=== PATIENT | male | born 1960 | race Two or more races ===

== ENCOUNTER 2024-07-27 20:13 | Inpatient (IN) | payer OTHER ==
[~2024-07-27] VITALS: Ht 175.3 cm; Wt 82.2 kg
--- NOTE | 2024-07-27 20:35 | ED.PDOC ---
HPI Comments 64-year-old came to ER via EMS for chest pains. Patient has history of hypertension, diabetes, dyslipidemia. States he has been having intermittent episodes of chest pains for the past 15 days. Chest pain is described to be pressure, substernal, nonradiating, intermittent, unprovoked. Upon arrival paramedics, noted hypertensive SBP >180's and EKG shows Afib. Patient has no history of Afib. Patient was given Nitroglycerin and 324 aspirin while en route to the ER. Chief Complaint: Chest Pains Time Seen by MD: 20:34 Reviewed Notes: Nurses Notes Allergies: Coded Allergies: NO KNOWN ALLERGIES (Unverified , 07/27/24) Information Source: Patient Mode of Arrival: EMS Severity: Moderate Timing: Days Duration: Intermittent Prehospital treatment: ASA, NTG, Oxygen Location: Substernal Radiation: No Radiation Quality: Pressure Onset: With Light Exertion Cardiac Risk Factors: Hyperlipidemia, HTN, Diabetes PE Risk Factors: None History of: Similar pain in past Associated Signs and Symptoms: None Past Medical History PAST MEDICAL HISTORY: DM, High Lipids, HTN Surgical History: Denies all surgeries Family History Family History: Reviewed,noncontributory to illness Social History Smoker: Non-Smoker Alcohol: Denies ETOH Use Drugs: Denies Drug Use Lives In: Home Constitutional: denies: chills, diaphoresis, fatigue, fever, malaise, sweats, weakness, others EENTM: denies: blurred vision, double vision, ear bleeding, ear discharge, ear drainage, ear pain, ear ringing, eye pain, eye redness, hearing loss, mouth pain, mouth swelling, nasal discharge, nose bleeding, nose congestion, nose pain, photophobia, tearing, throat pain, throat swelling, voice changes, others Respiratory: denies: cough, hemoptysis, orthopnea, SOB at rest, shortness of breath, SOB with excertion, stridor, wheezing, others Cardiovascular: reports: chest pain; denies: dizzy spells, diaphoresis, Dyspnea on exertion, edema, irregular heart beat, left arm pain, lightheadedness, palpitations, PND, syncope, others Gastrointestinal: denies: abdomen distended, abdominal pain, blood streaked bowels, constipated, diarrhea, dysphagia, difficulty swallowing, hematemesis, melena, nausea, poor appetite, poor fluid intake, rectal bleeding, rectal pain, vomiting, others Genitourinary: denies: burning, dysuria, flank pain, frequency, hematuria, incontinence, penile discharge, penile sore, pain, testicle pain, testicle swelling, urgency, others Neurological: denies: dizziness, fainting, headache, left sided numbness, left sided weakness, numbness, paresthesia, pre-existing deficit, right sided numbness, right sided weakness, seizure, speech problems, tingling, tremors, weakness, others Musculoskeletal: denies: back pain, gout, joint pain, joint swelling, muscle pain, muscle stiffness, neck pain, others Integumetry: denies: bruises, change in color, change in hair/nails, dryness, laceration, lesions, lumps, rash, wounds, others Allergic/Immunocompromised: denies: Difficulty Healing, Frequent Infections, Hives, Itching, others Hematologic/Lymphatic: denies: anemia, blood clots, easy bleeding, easy bruising, swollen glands, others Endocrine: denies: excessive hunger, excessive sweating, excessive thirst, excessive urination, flushing, intolerance to cold, intolerance to heat, unexplained weight gain, unexplained weight loss, others Psychiatric: denies: anxiety, bipolar disorder, depression, hopeless, panic disorder, schizophrenia, sleepless, suicidal, others Physical Exam General Appearance: No Apparent Distress, Normal HEENT: Normal ENT Inspection, Pharynx Normal, TMs Normal Neck: Full Range of Motion, Non-Tender, Normal, Normal Inspection Respiratory: Chest Non-Tender, Lungs Clear, No Accessory Muscle Use, No Respiratory Distress, Normal Breath Sounds Cardiovascular: No Edema, No JVD, No Murmur, No Gallop, Normal Peripheral Pulses, Regular Rate/Rhythm Breast Exam: Deferred Gastrointestinal: No Organomegaly, Non Tender, No Pulsatile Mass, Normal Bowel Sounds, Soft Genitalia: Deferred Pelvic: Deferred Rectal: Deferred Extremities: No calf tenderness, Normal capillary refill, Normal inspection, Normal range of motion, Non-tender, No pedal edema Musculoskeletal : Apperance: Normal Neurologic: Alert, jailer chief II-XII nml as Tested, No Motor Deficits, Normal Affect, Normal Mood, No Sensory Deficits Cerebellar Function: Normal Reflexes: Normal Skin: Dry, Normal Color, Warm Lymphatic: No Adenopathy Was a procedure done? Was a procedure done?: No CP Differential Dx Differential Diagnosis: Angina, Anxiety / Panic Attack Differential Diagnosis: Angina, Chest Wall Pain, Costochondritis, Esophageal reflux/spasm, Gastritis, Myocardial Infarction X-Ray, Labs, Meds, VS Vital Signs Date Time Temp Pulse Resp B/P (MAP) Pulse Ox O2 Delivery O2 Flow Rate FiO2 07/27/24 20:16 86 07/27/24 20:13 98.6 93 16 135/66 (89) 96 98.6 Lab Test 07/27/24 20:38 Range/Units White Blood Count 11.2 H 4.4-10.8 10^3/uL Red Blood Count 4.09 L 4.5-5.90 10^6/uL Hemoglobin 12.0 L 13.5-17.5 g/dL Hematocrit 35.9 L 41.0-53.0 % Mean Corpuscular Volume 87.9 80.0-100.0 fL Mean Corpuscular Hemoglobin 29.4 28.0-32.0 pg Mean Corpuscular Hemoglobin Concent 33.4 32.0-36.0 g/dL Red Cell Distribution Width 16.9 H 11.8-14.3 % Platelet Count 65 L 140-450 10^3/uL Mean Platelet Volume 9.0 6.9-10.8 fL Neutrophils (%) (Auto) 85.6 H 37.0-80.0 % Lymphocytes (%) (Auto) 7.5 L 10.0-50.0 % Monocytes (%) (Auto) 5.2 0.0-12.0 % Eosinophils (%) (Auto) 1.5 0.0-7.0 % Basophils (%) (Auto) 0.2 0.0-2.0 % Neutrophils # (Auto) 9.6 H 1.6-8.6 10 ^3/uL Lymphocytes # (Auto) 0.8 0.4-5.4 10 ^3/uL Monocytes # (Auto) 0.6 0-1.3 10 ^3/uL Eosinophils # (Auto) 0.2 0-0.8 10 ^3/uL Basophils # (Auto) 0 0-0.2 10 ^3/uL Nucleated Red Blood Cells 0.0 % Sodium Level 131 L 136-145 mmol/L Potassium Level 4.4 3.5-5.1 mmol/L Chloride Level 102 98-107 mmol/L Carbon Dioxide Level 19 L 20-31 mmol/L Anion Gap 10 5-15 Blood Urea Nitrogen 43 H 9-23 mg/dL Creatinine 2.71 H 0.700-1.30 mg/dL Glomerular Filtration Rate Calc 25 >90 mL/min BUN/Creatinine Ratio 15.9 10.0-20.0 Serum Glucose 155 H 74-106 mg/dL Calcium Level 9.1 8.7-10.4 mg/dL Troponin I High Sensitivity 500 *H </=54 ng/L B-Type Natriuretic Peptide 605.43 0-100 pg/mL Time of 1ST Reevaluation: 20:26 Reevaluation 1ST: Unchanged Patient Education/Counseling: Diagnosis, Treatment Family Education/Counseling: No Family Present Departure 1 Departure Time of Disposition: 22:16 (Patient presented with chest pain that was concerning for possible STEMI, ACS, PE, Pneumonia, Muscle Strain, COPD, Dissection. Data: 1. I ordered and reviewed the result of at least 3 labs including a CBC, BMP, and Troponin. 2. I independently interpreted the following tests: EKG which shows _ sinus arrhythmia and Chest X-ray which shows benign chest.Risk:This patient has a high risk of morbidity due to further diagnostic testing or treatment and may suffer from an acute cardiac or respiratory disorder. Workup reveals _ concern for ACS and patient should be admitted for further workup and possible expert consultation. ) Impression: Primary Impression: Acute chest pain Additional Impression: NSTEMI (non-ST elevated myocardial infarction) Disposition: 09 ADMITTED INPATIENT Admit to: Med Surg Condition: Serious Critical Care Note Critical Care Time?: Yes (45 min-critical care time only) Critical care comment: Acute chest pains Authorized and Performed by: Dennis Foster MD Total critical care time: Approximately 38 minutes Due to a high probability of clinically significant, life threatening deterioration, the patient required my highest level of preparedness to intervene emergently and I personally spent this critical care time directly and personally managing the patient. This critical care time included obtaining a history; examining the patient; pulse oximetry; ordering and review of studies; arranging urgent treatment with development of a management plan; evaluation of patient's response to treatment; frequent reassessment; and, discussions with other providers. This critical care time was performed to assess and manage the high probability of imminent, life-threatening deterioration that could result in multi-organ failure. It was exclusive of separately billable procedures and treating other patients and teaching time. Please see my other sections and the rest of the note for further information on patient assessment and treatment. Stability Stability form required: No Heart Score Heart Score: Heart Score Response (Comments) Value History Moderate Suspicious 1 EKG Repolarization Disturb 1 Age >65 2 Risk Factors >3 or Hx ASHD 2 Troponin Normal limit 0 Total 6 I personally scribed for DENNIS FOSTER MD ([email or web address]) on 07/27/24 at 20:35. Electronically submitted by Elliot Levine ([facility] [place]). DENNIS FOSTER MD Jul 27, 2024 20:35
[2024-07-27 20:57] LABS: Basophils # (auto) 0 10 ^3/uL (0-0.2); Basophils % (auto) 0.2 % (0.0-2.0); Eosinophils # (auto) 0.2 10 ^3/uL (0-0.8); Eosinophils % (auto) 1.5 % (0.0-7.0); Hematocrit 35.9 % (41.0-53.0); Lymphocytes # (auto) 0.8 10 ^3/uL (0.4-5.4); Lymphocytes % (auto) 7.5 % (10.0-50.0); Mean Corpuscular Hemoglobin 29.4 pg (28.0-32.0); Mean Corpuscular Hgb Conc. 33.4 g/dL (32.0-36.0); Mean Corpuscular Volume 87.9 fL (80.0-100.0); Monocytes # (auto) 0.6 10 ^3/uL (0-1.3); Monocytes % (auto) 5.2 % (0.0-12.0); Neutrophils # (auto) 9.6 10 ^3/uL (1.6-8.6); Neutrophils % (auto) 85.6 % (37.0-80.0); Platelet Count (auto) 65 10^3/uL (140-450); Red Blood Cells 4.09 10^6/uL (4.5-5.90); Red Cell Distribution Width 16.9 % (11.8-14.3); White Blood Cell 11.2 10^3/uL (4.4-10.8)
--- NOTE | 2024-07-27 21:02 | DVH ---
CHEST RADIOGRAPH Indication: chest pain Technique: Single frontal view of the chest was obtained Comparison: None FINDINGS: Lines and Tubes: None Lungs: Atelectasis or chronic changes right base Pleura: No effusion. No pneumothorax. Cardiomediastinal contours: Unremarkable Bones: No acute osseous abnormality. IMPRESSION: 1. Chronic changes versus atelectasis in the right base.
[2024-07-27 21:04] LABS: Anion Gap 10 (5-15); Chloride 102 mmol/L (98-107); Potassium 4.4 mmol/L (3.5-5.1)
[2024-07-27 21:05] LABS: Calcium 9.1 mg/dL (8.7-10.4)
[2024-07-27 21:10] LABS: BUN/Creatinine Ratio 15.9 (10.0-20.0)
[2024-07-27 21:11] LABS: Blood Urea Nitrogen 43 mg/dL (9-23); Carbon Dioxide 19 mmol/L (20-31); Glucose 155 mg/dL (74-106); Sodium 131 mmol/L (136-145)
[2024-07-27 23:00] VITALS: PULSE 75; RESP 17; O2SAT 97
[2024-07-27] MEDS ORDERED: HEPARIN SODIUM (PORCINE) 5000 UNITS/ML 1ML VIAL IV ONE (23:15)
[2024-07-27 23:32] LABS: INR 1.08 (0.9-1.15); Partial Thromboplastin Time 35.8 SEC (24.5-34.5); Prothrombin Time 11.4 sec (9.3-11.8)
[2024-07-27] MEDS: SODIUM CHLORIDE 0.9% 1,000 ML IV ONE (23:45)
[2024-07-28] VITALS (7 sets, daily range): BP systolic 102–134; BP diastolic 31–77; PULSE 64–88; RESP 16–20; TEMP 97.5–98.4; O2SAT 93–100
[2024-07-28] MEDS: ONDANSETRON HCL 4 MG/2 ML VIAL IV PRN (00:09)
[2024-07-28] MEDS: MORPHINE SULFATE INJ 2 MG/ml SYRG IV PRN (00:10)
[2024-07-28 00:11] LABS: LDL Cholesterol 52 mg/dL (< 100)
[2024-07-28 00:12] LABS: Cholesterol 100 mg/dL (< 200)
[2024-07-28 00:26] LABS: HDL Cholesterol 9 mg/dL (40-59); Triglycerides 183 mg/dL (< 150)
[2024-07-28] MEDS: HEPARIN DRIP/D5W 100UNITS/ML 250 ML IV SCH ×3 (01:37→19:45)
--- NOTE | 2024-07-28 04:49 | DVHHP2 ---
History of Present Illness Reason for Visit: Chest pain History of Present Illness 64-year-old male presents for evaluation of chest pain. Patient reports a two week history of intermittent chest pain. He states that yesterday the pain became more intense and would not subside. He describes the pain as substernal pressure nonradiating. Denies shortness or breath, nausea or vomiting. Currently rates the pain at 6/10 intensity. Past Medical History Dyslipidemia, hypertension, diabetes mellitus Past Surgical History PTCA Family History Noncontributory Smoke: No ALCOHOL: none Drugs: None Lives: with Family Review of Systems Review of Systems Review of systems are currently negative otherwise addressed in HPI. Allergies: Coded Allergies: NO KNOWN ALLERGIES (Unverified , 07/27/24) Medications Current Medications Medications Dose Ordered Sig/Joe Route Start Time Stop Time Status Last Admin Dose Admin Heparin Sodium/ Dextrose 250 ml @ 9 mls/hr Q24H IV 07/28/24 02:00 07/28/24 01:37 9 MLS/HR Ondansetron HCl 4 mg Q4HP PRN IV 07/27/24 23:15 07/28/24 00:09 4 MG Nitroglycerin 0.4 mg Q5MINP PRN SL 07/27/24 23:15 Morphine Sulfate 2 mg Q30M PRN IV 07/27/24 23:15 07/28/24 04:08 2 MG Exam Vital Signs Vital Signs Date Time Temp Pulse Resp B/P (MAP) Pulse Ox O2 Delivery O2 Flow Rate FiO2 07/28/24 04:08 90 18 130/42 07/28/24 01:00 98 07/27/24 23:30 99.0 99.0 07/27/24 23:00 Room Air* 0 21 Exam Gen: 64-year-old male in mild distress Skin: Warm, dry, normal color and texture, no rash. HEENT: Normocephalic atraumatic, mucous membranes moist and pink. Neck: Cervical and supraclavicular nodes normal without enlargement, trachea is midline, thyroid gland is normal without masses. Pulmonary: Clear to auscultation and percussion bilaterally. Cardiac: Regular rate and rhythm. No murmur Abdomen: Soft, nontender, nondistended, bowel sounds present all 4 quadrants, no guarding, no rigidity, no organomegaly. Extremities: No cyanosis, clubbing, no edema Neuro: Cranial nerves II through XII grossly intact, normal affect and speech, no focal motor deficits. Labs/Xrays ORDERING PHYSICIAN: DENNIS PAYNE MD PROCEDURE(s): CXRP - CHEST PORTABLE REASON: chest pain ORDER NUMBER(s): [id number], ACCESSION NUMBER(s): [id number] CHEST RADIOGRAPH Indication: chest pain Technique: Single frontal view of the chest was obtained Comparison: None FINDINGS: Lines and Tubes: None Lungs: Atelectasis or chronic changes right base Pleura: No effusion. No pneumothorax. Cardiomediastinal contours: Unremarkable Bones: No acute osseous abnormality. IMPRESSION: 1. Chronic changes versus atelectasis in the right base. Labs Test 07/27/24 23:10 07/27/24 20:38 Range/Units Troponin I High Sensitivity 910 *H </=54 ng/L Triglycerides Level 183 H < 150 mg/dL Cholesterol Level 100 < 200 mg/dL LDL Cholesterol 52 < 100 mg/dL HDL Cholesterol 9 L 40-59 mg/dL Thyroid Stimulating Hormone (TSH) 1.50 0.55-4.78 uIU/mL White Blood Count 11.2 H 4.4-10.8 10^3/uL Red Blood Count 4.09 L 4.5-5.90 10^6/uL Hemoglobin 12.0 L 13.5-17.5 g/dL Hematocrit 35.9 L 41.0-53.0 % Mean Corpuscular Volume 87.9 80.0-100.0 fL Mean Corpuscular Hemoglobin 29.4 28.0-32.0 pg Mean Corpuscular Hemoglobin Concent 33.4 32.0-36.0 g/dL Red Cell Distribution Width 16.9 H 11.8-14.3 % Platelet Count 65 L 140-450 10^3/uL Mean Platelet Volume 9.0 6.9-10.8 fL Neutrophils (%) (Auto) 85.6 H 37.0-80.0 % Lymphocytes (%) (Auto) 7.5 L 10.0-50.0 % Monocytes (%) (Auto) 5.2 0.0-12.0 % Eosinophils (%) (Auto) 1.5 0.0-7.0 % Basophils (%) (Auto) 0.2 0.0-2.0 % Neutrophils # (Auto) 9.6 H 1.6-8.6 10 ^3/uL Lymphocytes # (Auto) 0.8 0.4-5.4 10 ^3/uL Monocytes # (Auto) 0.6 0-1.3 10 ^3/uL Eosinophils # (Auto) 0.2 0-0.8 10 ^3/uL Basophils # (Auto) 0 0-0.2 10 ^3/uL Nucleated Red Blood Cells 0.0 % Prothrombin Time 11.4 9.3-11.8 sec Prothrombin Time INR 1.08 0.9-1.15 Activated Partial Thromboplast Time 35.8 H 24.5-34.5 SEC Sodium Level 131 L 136-145 mmol/L Potassium Level 4.4 3.5-5.1 mmol/L Chloride Level 102 98-107 mmol/L Carbon Dioxide Level 19 L 20-31 mmol/L Anion Gap 10 5-15 Blood Urea Nitrogen 43 H 9-23 mg/dL Creatinine 2.71 H 0.700-1.30 mg/dL Glomerular Filtration Rate Calc 25 >90 mL/min BUN/Creatinine Ratio 15.9 10.0-20.0 Serum Glucose 155 H 74-106 mg/dL Calcium Level 9.1 8.7-10.4 mg/dL B-Type Natriuretic Peptide 605.43 0-100 pg/mL Assessment/Plan Assessment/Plan Assessment NSTEMI Diabetes mellitus Hypertension Plan Admit the patient to telemetry to the hospitalist Heparin drip NPO Cardiology consultation Continue treatment per orders. Plan discussed with: Patient My Orders Orders - TOM ACUNA Procedure Category Date Status Time * Cardiology Consult CONS 07/27/24 Transmitted 23:07 Platelet Monitoring [facility] 07/27/24 In Process 23:07 Heparin Per [facility] 07/27/24 In Process Standardized Proce 23:07 Discontinue All Im [facility] 07/27/24 In Process Injections 23:07 Stat Ekg For Chest [facility] 07/27/24 In Process Pain 23:07 *[facility] CONS 07/27/24 Transmitted -[place] 23:07 Sodium Chloride 0.9% PHA 07/27/24 In Process 23:15 Admit ADMIT 07/27/24 Transmitted 23:07 Ondansetron Hcl PHA 07/27/24 In Process (Zofran) 23:15 Complete Blood Count LAB 07/28/24 Logged 04:00 Comprehensive LAB 07/28/24 Logged Metabolic Panel 04:00 Npo (Nothing By DIET 07/28/24 Transmitted Mouth) Diet Breakfast Echo 2d Mode Cardiac US 07/27/24 Logged DOP 23:07 Condition: Fair [facility] 07/27/24 In Process 23:07 Bedrest With Bathroom [facility] 07/27/24 In Process Privileg 23:07 Nitroglycerin PHA 07/27/24 In Process Sublingual (Ntrostat 23:15 Morphine Sulfate PHA 07/27/24 In Process Injection 23:15 Stat Ekg For Chest [facility] 07/27/24 In Process Pain 23:07 Notify Md Of Changes [facility] 07/27/24 In Process From Base 23:07 Wad Blanking Press Adjuster For [facility] 07/27/24 In Process 24 Hours 23:07 Emergency Dysrhythmia [facility] 07/27/24 In Process Protocol 23:07 Rhythm Strips Once [facility] 07/27/24 In Process Every Shift 23:07 Oxygen By Nasal RT 07/27/24 Transmitted Cannula 23:07 Heparin Drip/D5w PHA 07/28/24 In Process 100units/Ml 02:00 PTPTT LAB 07/28/24 Logged 07:00 Heparin Per Pharmacy [facility] 07/28/24 In Process Protocol 01:21 Electrocardigram EKG 07/28/24 Logged 03:51 Date of Service: Jul 27, 2024 Billing Provider: TOM ACUNA Common Visit Codes: [id number] INP/OBS CARE (HIGH) TOM ACUNA Jul 28, 2024 04:49
[2024-07-28 05:04] LABS: Basophils # (auto) 0 10 ^3/uL (0-0.2); Basophils % (auto) 0.1 % (0.0-2.0); Eosinophils # (auto) 0 10 ^3/uL (0-0.8); Eosinophils % (auto) 0.5 % (0.0-7.0); Hematocrit 32.1 % (41.0-53.0); Hemoglobin 10.9 g/dL (13.5-17.5); Lymphocytes # (auto) 0.7 10 ^3/uL (0.4-5.4); Lymphocytes % (auto) 7.2 % (10.0-50.0); Mean Corpuscular Hemoglobin 29.8 pg (28.0-32.0); Mean Corpuscular Hgb Conc. 33.9 g/dL (32.0-36.0); Mean Corpuscular Volume 87.7 fL (80.0-100.0); Monocytes # (auto) 0.6 10 ^3/uL (0-1.3); Monocytes % (auto) 6.6 % (0.0-12.0); Neutrophils # (auto) 8.2 10 ^3/uL (1.6-8.6); Neutrophils % (auto) 85.6 % (37.0-80.0); Nucleated Red Blood Cells % 0.1 %; Platelet Count (auto) 65 10^3/uL (140-450); Red Blood Cells 3.66 10^6/uL (4.5-5.90); Red Cell Distribution Width 16.5 % (11.8-14.3); White Blood Cell 9.5 10^3/uL (4.4-10.8)
[2024-07-28 05:20] LABS: INR 1.12 (0.9-1.15); Prothrombin Time 11.7 sec (9.3-11.8)
[2024-07-28 05:31] LABS: Alanine Aminotransferase 10 U/L (7-40); Alkaline Phosphatase 81 U/L (46-116); BUN/Creatinine Ratio 15.9 (10.0-20.0); Calcium 8.9 mg/dL (8.7-10.4); Total Protein 6.6 g/dL (5.7-8.2)
[2024-07-28 05:32] LABS: Aspartate Aminotransferase 36 U/L (13-40); Bilirubin, Total 0.6 mg/dL (0.2-1.0)
[2024-07-28 05:34] LABS: Albumin 3.1 g/dL (3.2-4.8); Blood Urea Nitrogen 45 mg/dL (9-23); Carbon Dioxide 19 mmol/L (20-31); Glucose 110 mg/dL (74-106)
[2024-07-28 05:39] LABS: Anion Gap 12 (5-15); Chloride 102 mmol/L (98-107); Potassium 4.3 mmol/L (3.5-5.1)
[2024-07-28 05:40] LABS: Sodium 133 mmol/L (136-145)
--- NOTE | 2024-07-28 06:54 | ECG ---
[facility] Test Date: 2024-07-27 Test Time: 21:35:31 Pat Name: JOSEPH CERDA Department: ER Room: 0235T Gender: M Fugitive Investigator: MARILOU : 1960 Requested By: DENNIS PAYNE Order Number: [id number] Reading MD: Jeremie Camarena Measurements Intervals [place] Rate: 85 P: 253 AK: 203 QRS: 190 QRSD: 175 T: 35 QT: 426 QTc: 507 Interpretive Statements Sinus or ectopic atrial rhythm Atrial premature complex Nonspecific intraventricular conduction delay Minimal ST depression, anterolateral leads Electronically Signed On 08-01-2024 12:42:48 PDT by Jeremie Camarena Please click the below link to view image of tracing.
--- NOTE | 2024-07-28 06:54 | ECG ---
[facility] Test Date: 2024-07-27 Test Time: 22:44:52 Pat Name: JOSEPH CERDA Department: TRIAGE Room: 0235T Gender: M Sealer Operator: MARILOU : 1960 Requested By: DENNIS PAYNE Order Number: [id number] Reading MD: Jeremie Camarena Measurements Intervals [place] Rate: 80 P: 0 DE: 193 QRS: 172 QRSD: 183 T: 43 QT: 451 QTc: 521 Interpretive Statements Sinus rhythm Right bundle branch block Electronically Signed On 08-01-2024 12:43:06 PDT by Jeremie Camarena Please click the below link to view image of tracing.
[2024-07-28 09:09] LABS: Urine Bacteria FEW /hpf (None Seen); Urine Blood Negative /uL (Negative); Urine Color Yellow (Yellow); Urine Protein, UAD 1+ (Negative); Urine Specific Gravity 1.013 (1.001-1.035); Urine Squamous Epithelial Cell FEW /hpf (<5); Urine Urobilinogen Normal (Negative); Urine WBC 7 /HPF (0-3); Urine pH 5.5 (5.0-9.0)
[2024-07-28 09:10] LABS: Urine Clarity Hazy (Clear)
--- NOTE | 2024-07-28 09:43 | ECG ---
[facility] Test Date: 2024-07-28 Test Time: 03:43:05 Pat Name: JOSEPH CERDA Department: Room: 0235T Gender: M Forensic Artist: rn : 1960 Requested By: TOM ACUNA Order Number: [id number] Reading MD: Jeremie Camarena Measurements Intervals [place] Rate: 88 P: 0 WV: 0 QRS: 132 QRSD: 193 T: 41 QT: 480 QTc: 581 Interpretive Statements Accelerated junctional rhythm RBBB and LPFB Borderline ST depression, lateral leads Baseline wander in lead(s) I,V1,V6 Electronically Signed On 08-01-2024 12:13:31 PDT by Jeremie Camarena Please click the below link to view image of tracing.
--- NOTE | 2024-07-28 09:43 | ECG ---
[facility] Test Date: 2024-07-28 Test Time: 03:44:20 Pat Name: JOSEPH CERDA Department: Room: 0235T Gender: M Target Trimmer: rn : 1960 Requested By: FREDY LARA Order Number: [id number] Reading MD: Jeremie Camarena Measurements Intervals [place] Rate: 86 P: 0 NE: 326 QRS: 104 QRSD: 187 T: 39 QT: 451 QTc: 540 Interpretive Statements Sinus rhythm Atrial premature complex Prolonged NE interval REYNA, consider biatrial enlargement RBBB and LPFB Borderline ST depression, lateral leads Electronically Signed On 08-01-2024 12:13:46 PDT by Jeremie Camarena Please click the below link to view image of tracing.
--- NOTE | 2024-07-28 11:08 | DVHINCON2 ---
Date Seen: Jul 28, 2024 Referring Physician Arias CASEY Reason for Consultation Elevated troponins History of Present Illness This 64-year-old male presents in ED via EMS with a chief complaint of chest pain. The patient reports chest pressure pain nonradiating, non provoked for the past 15 days. In the emergency department, the patient underwent a 12 lead ECG showing normal sinus rhythm with prolonged [place] interval and right BBB, serial troponin up trending with a recent results in . The patient is currently receiving heparin drip and aspirin. Currently denies chest pain, diaphoresis, shortness of breath or difficulty in breathing. The patient reports that he had recent angiogram in April 2024 with clean coronaries. The patient states that he is under a Cardiology from [place] and supposed to have a follow-up office visit this coming August 06, 2024. The patient is alert and oriented but somehow poor historian, the son was contacted to verify cardiac history who states that the patient was supposed to take blood thinners but for some reason had stopped. Significant past medical history of hypertension, hyperlipidemia, diabetes, and possible noncompliance. Off note: Upon reviewing medical record, ER noted that the patient EKG shows AFib, unable to locate 12 lead ECG with atrial fibrillation. Telemetry reviewed with no episodes of atrial fibrillation. Past Medical History As stated in HPI Past Surgical History ?Left coronary angiogram Family History Reviewed, non-contributory to the management of this case. Social History The patient lives at home, denies smoking, alcohol or illicit drugs abuse. Allergies: Coded Allergies: NO KNOWN ALLERGIES (Unverified , 07/27/24) Current Medications Current Medications Medications (Trade) Dose Ordered Sig/Joe Route PRN Reason Start Time Stop Time Status Last Admin Heparin Sodium/ Dextrose 250 ml @ 9 mls/hr Q24H IV 07/28/24 02:00 07/28/24 01:37 Ondansetron HCl (Zofran) 4 mg Q4HP PRN IV NAUSEA / VOMITING 07/27/24 23:15 07/28/24 00:09 Nitroglycerin (Ntrostat Sublingual) 0.4 mg Q5MINP PRN SL FOR CHEST PAIN 07/27/24 23:15 Morphine Sulfate 2 mg Q30M PRN IV FOR CHEST PAIN 07/27/24 23:15 07/28/24 04:08 Review of Systems Constitutional: No symptom reported Ears, Nose, & Throat: No symptom reported Eyes: No symptom reported Neurological: No symptoms reported Pulmonary/Respiratory: No symptom reported Cardiovascular: Chest pain Gastrointestinal: No symptom reported Genitourinary: No symptom reported Musculoskeletal: No symptom reported Skin: No symptom reported Psychiatric: No symptom reported Endocrine: No symptom reported Hematologic/Lymphatic: No symptom reported Vital Signs Vital Signs Date Time Temp Pulse Resp B/P (MAP) Pulse Ox O2 Delivery O2 Flow Rate FiO2 07/28/24 08:00 97.9 69 18 102/31 (54) 98 97.9 07/28/24 02:42 Room Air* 0 21 Physical Exam INITIAL VITAL SIGNS: Reviewed by me GENERAL: Alert and interactive. No acute distress. HEAD: Head is normocephalic and atraumatic. EYES: EOMI, PERRL. No scleral icterus. No conjunctival injection. ENT: Moist mucous membranes. NECK: Supple, No masses, Full range of motion. RESPIRATORY: No tachypnea. Clear breath sounds bilaterally. No wheezing, rales, rhonchi. CV: Regular rate and rhythm. No shortness of breath, no dyspnea GI/: Active bowel sounds, soft, nondistended, nontender. No guarding. No rebound. No masses. No CVA tenderness. INTEGUMENTARY: Warm and dry. No obvious rashes. NEUROLOGIC: Alert and oriented. Face is symmetric. Speech is normal. Moves all extremities equally. Labs/Diagnostic Data Labs Test 07/28/24 08:45 07/28/24 04:22 07/28/24 04:21 07/27/24 23:10 Range/Units Urine Color Yellow Yellow Urine Clarity Hazy H Clear Urine pH 5.5 5.0-9.0 Urine Specific [place] 1.013 1.001-1.035 Urine Protein 1+ H Negative Urine Ketones Negative Negative Urine Blood Negative Negative /uL Urine Nitrite Negative Negative Urine Bilirubin Negative Negative Urine Urobilinogen Normal Negative mg/dL Urine Leukocyte Esterase Negative Negative /uL Urine RBC 3 0 - 3 /hpf Urine Microscopic WBC 7 H 0-3 /HPF Urine Squamous Epithelial Cells Few <5 /hpf Urine Bacteria Few H None Seen /hpf Urine Glucose Normal Normal mg/dL B-Type Natriuretic Peptide 1217.74 0-100 pg/mL White Blood Count 9.5 4.4-10.8 10^3/uL Red Blood Count 3.66 L 4.5-5.90 10^6/uL Hemoglobin 10.9 L 13.5-17.5 g/dL Hematocrit 32.1 #L 41.0-53.0 % Mean Corpuscular Volume 87.7 80.0-100.0 fL Mean Corpuscular Hemoglobin 29.8 28.0-32.0 pg Mean Corpuscular Hemoglobin Concent 33.9 32.0-36.0 g/dL Red Cell Distribution Width 16.5 H 11.8-14.3 % Platelet Count 65 L 140-450 10^3/uL Mean Platelet Volume 8.9 6.9-10.8 fL Neutrophils (%) (Auto) 85.6 H 37.0-80.0 % Lymphocytes (%) (Auto) 7.2 L 10.0-50.0 % Monocytes (%) (Auto) 6.6 0.0-12.0 % Eosinophils (%) (Auto) 0.5 0.0-7.0 % Basophils (%) (Auto) 0.1 0.0-2.0 % Neutrophils # (Auto) 8.2 1.6-8.6 10 ^3/uL Lymphocytes # (Auto) 0.7 0.4-5.4 10 ^3/uL Monocytes # (Auto) 0.6 0-1.3 10 ^3/uL Eosinophils # (Auto) 0 0-0.8 10 ^3/uL Basophils # (Auto) 0 0-0.2 10 ^3/uL Nucleated Red Blood Cells 0.1 % Prothrombin Time 11.7 9.3-11.8 sec Prothrombin Time INR 1.12 0.9-1.15 Activated Partial Thromboplast Time 53.0 H 24.5-34.5 SEC Sodium Level 133 L 136-145 mmol/L Potassium Level 4.3 3.5-5.1 mmol/L Chloride Level 102 98-107 mmol/L Carbon Dioxide Level 19 L 20-31 mmol/L Anion Gap 12 5-15 Blood Urea Nitrogen 45 H 9-23 mg/dL Creatinine 2.83 H 0.700-1.30 mg/dL Glomerular Filtration Rate Calc 24 >90 mL/min BUN/Creatinine Ratio 15.9 10.0-20.0 Serum Glucose 110 H 74-106 mg/dL Calcium Level 8.9 8.7-10.4 mg/dL Magnesium Level 2.3 1.6-2.6 mg/dL Total Bilirubin 0.6 0.2-1.0 mg/dL Aspartate Amino Transferase (AST) 36 13-40 U/L Alanine Aminotransferase (ALT) 10 7-40 U/L Alkaline Phosphatase 81 46-116 U/L Troponin I High Sensitivity 2041 *H </=54 ng/L Total Protein 6.6 5.7-8.2 g/dL Albumin 3.1 L 3.2-4.8 g/dL Triglycerides Level 183 H < 150 mg/dL Cholesterol Level 100 < 200 mg/dL LDL Cholesterol 52 < 100 mg/dL HDL Cholesterol 9 L 40-59 mg/dL Thyroid Stimulating Hormone (TSH) 1.50 0.55-4.78 uIU/mL PROCEDURE(s): CXRP - CHEST PORTABLE REASON: chest pain ORDER NUMBER(s): [id number], ACCESSION NUMBER(s): [id number] CHEST RADIOGRAPH Indication: chest pain Technique: Single frontal view of the chest was obtained Comparison: None FINDINGS: Lines and Tubes: None Lungs: Atelectasis or chronic changes right base Pleura: No effusion. No pneumothorax. Cardiomediastinal contours: Unremarkable Bones: No acute osseous abnormality. IMPRESSION: 1. Chronic changes versus atelectasis in the right base. Assessment NSTEMI Rule out ACS Rule out structural heart disease RACHEL on possible CKD 4 Hypertension Dyslipidemia Diabetes type 2 Plan/Recommendation Plan/recommendations (Dr. Wong ): * Echocardiogram to evaluate cardiac function * ACS protocol - heparin drip, asa, statins * Lasix, monitor kidney function closely, monitor intake and output, daily weight Continue with heparin drip and asa, we will continue to monitor troponin and EKG, we will re-evaluate for possible ischemic workup once kidney function has improved. This medical document was created using an electronic medical record system with voice recognition software and computerized dictation system. Although this document has been carefully reviewed, there might still be some phonetic and typographical errors. Occasional wrong-word or ``sound-alike substitutions may have occurred due to the inherent limitations of voice recognition software. These areas are purely typographical due to imperfections of the software programs and do not reflect any compromise in the patient's medical care. Please read the chart carefully and recognize, using context, where these substitutions have occurred. Plan discussed with: Patient Plan discussed with: Patient, Son NYHA Physical activity limitations: Class2(Slight)fatigue,sob Date of Service: Jul 28, 2024 Billing Provider: PETRONA WONG MD Cardiology Common Codes: CONSULT ONLY Cardiology Consultation Codes: 92722-[id number] CONSULT <60MIN FREDY LARA [employer] Jul 28, 2024 11:08
[2024-07-28 11:52] LABS: Protein, Urine 71.7 mg/dL (1-14)
[2024-07-28 11:52] LABS: INR 1.14 (0.9-1.15); Prothrombin Time 11.9 sec (9.3-11.8)
[2024-07-28 11:55] LABS: Partial Thromboplastin Time 87.7 SEC (24.5-34.5)
[2024-07-28 11:55] LABS: Creatinine, Urine 112.81 mg/dL (30.0-125.0)
[2024-07-28] MEDS: ASPirin 81 mg TAB PO ONE ×2 (12:11→18:00)
[2024-07-28] MEDS: FUROSEMIDE 20 MG/2 ML VIAL IV ONE (12:12)
--- NOTE | 2024-07-28 12:27 | CONS ---
Pharmacy Clinical Information: HEPARIN PER RX APTT RESULT 07/28@1100 = 87.7 ON RATE 9ML/HR NEW RATE 7ML/HR NEXT APTT @1800 COMMUNICATED WITH PRECIOUS BANSAL PHARMACIST Jul 28, 2024 12:27
--- NOTE | 2024-07-28 13:34 | DVH ---
US KIDNEY HISTORY: danelle COMPARISON: None TECHNIQUE: Transverse and longitudinal grayscale and color Doppler images were obtained of the kidney s and bladder. FINDINGS: Right kidney: Size: 9.9 cm Cortical thickness: Normal Echogenicity: Normal Stones: None Masses: None Hydronephrosis: None Ureters: Not well visualized. Other: None Left kidney: Size: 9.1 cm Cortical thickness: Normal Echogenicity: Normal Stones: None Masses: None Hydronephrosis: None Ureters: Not well visualized. Other: None Bladder: Normal Other: None. IMPRESSION: Normal renal ultrasound.
--- NOTE | 2024-07-28 14:16 | DVHINCON2 ---
Date of service: Jul 28, 2024 Referring Physician Arias Reason for Consultation RF, RACHEL History of Present Illness 64 y/o male with past medical hx of HTN, type 2 DM, and hyperlipidemia. Pt reports he had been experiencing CP x 2 weeks. Pt was admitted for NSTEMI, RACHEL. On admission pt had BUN of 43, creat 2.71, GFR 25. Repeat labs on 07/28 BUN 45, creat 2.83, GFR 24. Nephrology consult for RACHEL. Pt denies hx of CKD. Pt reports he follows up with his PCP. Reports blood pressures have been well controlled, DM well controlled. Reports daily ibuprofen use 200mg. Past Medical History HTN, type 2 DM, hyperlipidemia. Allergies: Coded Allergies: NO KNOWN ALLERGIES (Unverified , 07/27/24) Current Medications Current Medications Medications (Trade) Dose Ordered Sig/Joe Route PRN Reason Start Time Stop Time Status Last Admin Heparin Sodium/ Dextrose 250 ml @ 9 mls/hr Q24H IV 07/28/24 02:00 07/28/24 12:20 DC 07/28/24 01:37 Aspirin 81 mg DAILY PO 07/29/24 10:00 Atorvastatin Calcium (Lipitor) 40 mg HS PO 07/28/24 22:00 07/28/24 21:13 Furosemide (Lasix Injection) 20 mg DAILY IV 07/29/24 10:00 Metoprolol Succinate (Toprol Xl) 50 mg DAILY PO 07/29/24 10:00 Clopidogrel Bisulfate (Plavix) 75 mg DAILY PO 07/29/24 10:00 Heparin Sodium/ Dextrose 250 ml @ 7 mls/hr Q24H IV 07/28/24 12:30 07/28/24 19:45 DC 07/28/24 12:56 Heparin Sodium/ Dextrose 250 ml @ 9 mls/hr Q24H IV 07/28/24 19:45 07/28/24 19:45 Review of Systems 10 systems reviewed and negative except as per HPI H&P Exam Vital Signs/I&O Vital Sign Date Time Temp Pulse Resp B/P (MAP) Pulse Ox O2 Delivery O2 Flow Rate FiO2 07/28/24 21:08 134/40 07/28/24 21:00 98.0 69 17 96 98.0 07/28/24 20:00 Room Air* 0 21 Intake and Output 07/27/24 07/28/24 19:00 07:00 Intake Total 172 ml Output Total 0 ml Balance 172 ml Intake Oral 0 ml IV Total 172 ml Output Urine Total 0 ml Physical Exam Gen: Appears stated age, no acute distress HEENT:Pupils equal and reactive to light and accommodation Lungs: Bilateral air entry, no rales CVS: RRR, normal S1 and S2 Abd:normoactive bowel sounds, soft, nondistended Ext: No edema Neuro: A&O x4 Labs/Diagnostic Data Labs/Diagnostic Data Laboratory Tests Test 07/28/24 18:51 07/28/24 11:05 07/28/24 08:45 07/28/24 04:22 Range/Units Prothrombin Time 11.4 11.9 H 9.3-11.8 sec Prothrombin Time INR 1.08 1.14 0.9-1.15 Activated Partial Thromboplast Time 42.0 H 87.7 *H 24.5-34.5 SEC Urine Color Yellow Yellow Urine Clarity Hazy H Clear Urine pH 5.5 5.0-9.0 Urine Specific [place] 1.013 1.001-1.035 Urine Protein 1+ H Negative Urine Ketones Negative Negative Urine Blood Negative Negative /uL Urine Nitrite Negative Negative Urine Bilirubin Negative Negative Urine Urobilinogen Normal Negative mg/dL Urine Leukocyte Esterase Negative Negative /uL Urine RBC 3 0 - 3 /hpf Urine Microscopic WBC 7 H 0-3 /HPF Urine Squamous Epithelial Cells Few <5 /hpf Urine Bacteria Few H None Seen /hpf Urine Creatinine 112.81 30.0-125.0 mg/dL Urine Sodium 23 L 40-220 mmol/L Urine Glucose Normal Normal mg/dL Urine Total Protein 71.7 H 1-14 mg/dL B-Type Natriuretic Peptide 1217.74 0-100 pg/mL Test 07/28/24 04:21 07/27/24 23:10 07/27/24 22:26 07/27/24 20:38 Range/Units White Blood Count 9.5 11.2 H 4.4-10.8 10^3/uL Red Blood Count 3.66 L 4.09 L 4.5-5.90 10^6/uL Hemoglobin 10.9 L 12.0 L 13.5-17.5 g/dL Hematocrit 32.1 #L 35.9 L 41.0-53.0 % Mean Corpuscular Volume 87.7 87.9 80.0-100.0 fL Mean Corpuscular Hemoglobin 29.8 29.4 28.0-32.0 pg Mean Corpuscular Hemoglobin Concent 33.9 33.4 32.0-36.0 g/dL Red Cell Distribution Width 16.5 H 16.9 H 11.8-14.3 % Platelet Count 65 L 65 L 140-450 10^3/uL Mean Platelet Volume 8.9 9.0 6.9-10.8 fL Neutrophils (%) (Auto) 85.6 H 85.6 H 37.0-80.0 % Lymphocytes (%) (Auto) 7.2 L 7.5 L 10.0-50.0 % Monocytes (%) (Auto) 6.6 5.2 0.0-12.0 % Eosinophils (%) (Auto) 0.5 1.5 0.0-7.0 % Basophils (%) (Auto) 0.1 0.2 0.0-2.0 % Neutrophils # (Auto) 8.2 9.6 H 1.6-8.6 10 ^3/uL Lymphocytes # (Auto) 0.7 0.8 0.4-5.4 10 ^3/uL Monocytes # (Auto) 0.6 0.6 0-1.3 10 ^3/uL Eosinophils # (Auto) 0 0.2 0-0.8 10 ^3/uL Basophils # (Auto) 0 0 0-0.2 10 ^3/uL Nucleated Red Blood Cells 0.1 0.0 % Prothrombin Time 11.7 11.4 9.3-11.8 sec Prothrombin Time INR 1.12 1.08 0.9-1.15 Activated Partial Thromboplast Time 53.0 H 35.8 H 24.5-34.5 SEC Sodium Level 133 L 131 L 136-145 mmol/L Potassium Level 4.3 4.4 3.5-5.1 mmol/L Chloride Level 102 102 98-107 mmol/L Carbon Dioxide Level 19 L 19 L 20-31 mmol/L Anion Gap 12 10 5-15 Blood Urea Nitrogen 45 H 43 H 9-23 mg/dL Creatinine 2.83 H 2.71 H 0.700-1.30 mg/dL Glomerular Filtration Rate Calc 24 25 >90 mL/min BUN/Creatinine Ratio 15.9 15.9 10.0-20.0 Serum Glucose 110 H 155 H 74-106 mg/dL Calcium Level 8.9 9.1 8.7-10.4 mg/dL Magnesium Level 2.3 1.6-2.6 mg/dL Total Bilirubin 0.6 0.2-1.0 mg/dL Aspartate Amino Transferase (AST) 36 13-40 U/L Alanine Aminotransferase (ALT) 10 7-40 U/L Alkaline Phosphatase 81 46-116 U/L Troponin I High Sensitivity 2041 *H 910 *H 689 *H 500 *H </=54 ng/L Total Protein 6.6 5.7-8.2 g/dL Albumin 3.1 L 3.2-4.8 g/dL Triglycerides Level 183 H < 150 mg/dL Cholesterol Level 100 < 200 mg/dL LDL Cholesterol 52 < 100 mg/dL HDL Cholesterol 9 L 40-59 mg/dL Thyroid Stimulating Hormone (TSH) 1.50 0.55-4.78 uIU/mL B-Type Natriuretic Peptide 605.43 0-100 pg/mL Plan/Recommendation IMP RACHEL hemodynamically mediated baseline serum creat unknown, unknown hx of CKD Mild hyponatremia NSTEMI Hx of HTN HX of type 2 DM REC CMP, CBC, phos, TSH, uric acid, urine studies Renal U/S Strict I&O's Avoidance of nephrotoxins We will continue to follow Plan discussed with: Patient, Other (Dr. Coronel) MARTIN BUNCH Jul 28, 2024 14:16
[2024-07-28] MEDS: NITROGLYCERIN 0.4 MG SL TAB SL PRN (18:02)
--- NOTE | 2024-07-28 18:31 | DVHINCON2 ---
Date Seen: Jul 28, 2024 Referring Physician Arias CASEY Reason for Consultation Elevated troponins History of Present Illness This 64-year-old male with a past medical history of hypertension, hyperlipidemia, diabetes, and possible noncompliance who presents to ED via EMS with a complaint of chest pain. The patient reports chest pressure pain nonradiating, non provoked for the past 15 days. In the emergency department, the patient underwent a 12 lead ECG showing normal sinus rhythm with prolonged [place] interval and right BBB, serial troponin up trending with a recent results in . The patient is currently receiving heparin drip and aspirin. Currently denies chest pain, diaphoresis, shortness of breath or difficulty in breathing. The patient reports that he had recent angiogram in April 2024 with clean coronaries. Patient states that he is under a Cardiology from [place] and supposed to have a follow-up office visit scheduled for August 06, 2024. The patient is alert and oriented but somehow poor historian, the son was contacted to verify cardiac history who states that the patient was supposed to take blood thinners but for some reason had stopped. Off note: Upon reviewing medical record, ER noted that the patient EKG shows AFib, unable to locate 12 lead ECG with atrial fibrillation. Telemetry reviewed with no episodes of atrial fibrillation. Chest x-ray showed chronic changes versus atelectasis in the right base. Allergies: Coded Allergies: NO KNOWN ALLERGIES (Unverified , 07/27/24) Current Medications Current Medications Medications (Trade) Dose Ordered Sig/Joe Route PRN Reason Start Time Stop Time Status Last Admin Heparin Sodium/ Dextrose 250 ml @ 9 mls/hr Q24H IV 07/28/24 02:00 07/28/24 12:20 DC 07/28/24 01:37 Ondansetron HCl (Zofran) 4 mg Q4HP PRN IV NAUSEA / VOMITING 07/27/24 23:15 07/28/24 00:09 Nitroglycerin (Ntrostat Sublingual) 0.4 mg Q5MINP PRN SL FOR CHEST PAIN 07/27/24 23:15 Morphine Sulfate 2 mg Q30M PRN IV FOR CHEST PAIN 07/27/24 23:15 07/28/24 04:08 Aspirin 81 mg DAILY PO 07/29/24 10:00 Atorvastatin Calcium (Lipitor) 40 mg HS PO 07/28/24 22:00 Furosemide (Lasix Injection) 20 mg DAILY IV 07/29/24 10:00 Metoprolol Succinate (Toprol Xl) 50 mg DAILY PO 07/29/24 10:00 Clopidogrel Bisulfate (Plavix) 75 mg DAILY PO 07/29/24 10:00 Heparin Sodium/ Dextrose 250 ml @ 7 mls/hr Q24H IV 07/28/24 12:30 07/28/24 12:56 Review of Systems Constitutional: No symptom reported Ears, Nose, & Throat: No symptom reported Eyes: No symptom reported Neurological: No symptoms reported Pulmonary/Respiratory: No symptom reported Cardiovascular: Chest pain Gastrointestinal: No symptom reported Genitourinary: No symptom reported Musculoskeletal: No symptom reported Skin: No symptom reported Psychiatric: No symptom reported Endocrine: No symptom reported Hematologic/Lymphatic: No symptom reported Vital Signs Vital Signs Date Time Temp Pulse Resp B/P (MAP) Pulse Ox O2 Delivery O2 Flow Rate FiO2 07/28/24 12:12 102/31 07/28/24 08:00 97.9 69 18 98 97.9 07/28/24 08:00 Nasal Cannula* 2 28 Physical Exam GENERAL: Alert and oriented x 3. No acute distress. EYES: PERRL, EOMI. Anicteric. HENT: Moist mucous membranes. LUNGS: Clear to auscultation bilaterally. CARDIOVASCULAR: Regular rate and rhythm. ABDOMEN: Soft, nontender and nondistended. EXTREMITIES: No edema. NEUROLOGIC: No focal neurological deficits. SKIN: Warm, dry. Labs/Diagnostic Data Labs Test 07/28/24 11:05 07/28/24 08:45 07/28/24 04:22 07/28/24 04:21 Range/Units Prothrombin Time 11.9 H 9.3-11.8 sec Prothrombin Time INR 1.14 0.9-1.15 Activated Partial Thromboplast Time 87.7 *H 24.5-34.5 SEC Urine Color Yellow Yellow Urine Clarity Hazy H Clear Urine pH 5.5 5.0-9.0 Urine Specific [place] 1.013 1.001-1.035 Urine Protein 1+ H Negative Urine Ketones Negative Negative Urine Blood Negative Negative /uL Urine Nitrite Negative Negative Urine Bilirubin Negative Negative Urine Urobilinogen Normal Negative mg/dL Urine Leukocyte Esterase Negative Negative /uL Urine RBC 3 0 - 3 /hpf Urine Microscopic WBC 7 H 0-3 /HPF Urine Squamous Epithelial Cells Few <5 /hpf Urine Bacteria Few H None Seen /hpf Urine Creatinine 112.81 30.0-125.0 mg/dL Urine Sodium 23 L 40-220 mmol/L Urine Glucose Normal Normal mg/dL Urine Total Protein 71.7 H 1-14 mg/dL B-Type Natriuretic Peptide 1217.74 0-100 pg/mL White Blood Count 9.5 4.4-10.8 10^3/uL Red Blood Count 3.66 L 4.5-5.90 10^6/uL Hemoglobin 10.9 L 13.5-17.5 g/dL Hematocrit 32.1 #L 41.0-53.0 % Mean Corpuscular Volume 87.7 80.0-100.0 fL Mean Corpuscular Hemoglobin 29.8 28.0-32.0 pg Mean Corpuscular Hemoglobin Concent 33.9 32.0-36.0 g/dL Red Cell Distribution Width 16.5 H 11.8-14.3 % Platelet Count 65 L 140-450 10^3/uL Mean Platelet Volume 8.9 6.9-10.8 fL Neutrophils (%) (Auto) 85.6 H 37.0-80.0 % Lymphocytes (%) (Auto) 7.2 L 10.0-50.0 % Monocytes (%) (Auto) 6.6 0.0-12.0 % Eosinophils (%) (Auto) 0.5 0.0-7.0 % Basophils (%) (Auto) 0.1 0.0-2.0 % Neutrophils # (Auto) 8.2 1.6-8.6 10 ^3/uL Lymphocytes # (Auto) 0.7 0.4-5.4 10 ^3/uL Monocytes # (Auto) 0.6 0-1.3 10 ^3/uL Eosinophils # (Auto) 0 0-0.8 10 ^3/uL Basophils # (Auto) 0 0-0.2 10 ^3/uL Nucleated Red Blood Cells 0.1 % Sodium Level 133 L 136-145 mmol/L Potassium Level 4.3 3.5-5.1 mmol/L Chloride Level 102 98-107 mmol/L Carbon Dioxide Level 19 L 20-31 mmol/L Anion Gap 12 5-15 Blood Urea Nitrogen 45 H 9-23 mg/dL Creatinine 2.83 H 0.700-1.30 mg/dL Glomerular Filtration Rate Calc 24 >90 mL/min BUN/Creatinine Ratio 15.9 10.0-20.0 Serum Glucose 110 H 74-106 mg/dL Calcium Level 8.9 8.7-10.4 mg/dL Magnesium Level 2.3 1.6-2.6 mg/dL Total Bilirubin 0.6 0.2-1.0 mg/dL Aspartate Amino Transferase (AST) 36 13-40 U/L Alanine Aminotransferase (ALT) 10 7-40 U/L Alkaline Phosphatase 81 46-116 U/L Troponin I High Sensitivity 2041 *H </=54 ng/L Total Protein 6.6 5.7-8.2 g/dL Albumin 3.1 L 3.2-4.8 g/dL Test 07/27/24 23:10 Range/Units Triglycerides Level 183 H < 150 mg/dL Cholesterol Level 100 < 200 mg/dL LDL Cholesterol 52 < 100 mg/dL HDL Cholesterol 9 L 40-59 mg/dL Thyroid Stimulating Hormone (TSH) 1.50 0.55-4.78 uIU/mL Assessment NSTEMI. Rule out ACS. Rule out structural heart disease. RACHEL on possible CKD 4. Hypertension. Dyslipidemia. Diabetes type 2. Plan/Recommendation I agree with your ongoing assessment and care of plan. Patient has been seen by Billie Crowder NP on my behalf, her and I discussed the plan with the patient. Echocardiogram to evaluate cardiac function. ACS protocol - heparin drip, asa, statins. Lasix, monitor kidney function closely, monitor intake and output, daily weight. Continue with heparin drip and asa, we will continue to monitor troponin and EKG, we will re-evaluate for possible ischemic workup once kidney function has improved. Additional plan as per the hospital course. Plan discussed with: Patient NYHA Physical activity limitations: Class2(Slight)fatigue,sob Date of Service: Jul 28, 2024 Billing Provider: PETRONA WONG MD Cardiology Common Codes: 51038-[id number] INP/OBS CARE (High) Cardiology Consultation Codes: [id number] CONSULT <60MIN PETRONA WONG MD Jul 28, 2024 14:00
[2024-07-28 19:18] LABS: INR 1.08 (0.9-1.15); Prothrombin Time 11.4 sec (9.3-11.8)
--- NOTE | 2024-07-28 19:50 | CONS ---
Pharmacy Clinical Information: Coagulation Test 07/27/24 20:38 07/28/24 04:21 07/28/24 11:05 07/28/24 18:51 Prothrombin Time 11.4 sec (9.3-11.8) 11.7 sec (9.3-11.8) 11.9 sec (9.3-11.8) H 11.4 sec (9.3-11.8) Prothrombin Time INR 1.08 (0.9-1.15) 1.12 (0.9-1.15) 1.14 (0.9-1.15) 1.08 (0.9-1.15) Activated Partial Thromboplast Time 35.8 SEC (24.5-34.5) H 53.0 SEC (24.5-34.5) H 87.7 SEC (24.5-34.5) *H 42.0 SEC (24.5-34.5) H NOTIFIED RN: SUBTHERAPEUTIC, INCREASE RATE TO 900 UNITS/HR=9 ML/HR, NEXT PTT @ 0200. PER RN NO SIGNS OF BLEEDING. MIKA SANTANA Jul 28, 2024 19:50
--- NOTE | 2024-07-28 20:15 | DVHPN2 ---
Subjective 64-year-old male presents in ED via EMS with a chief complaint of chest pain. The patient reports chest pressure pain nonradiating, non provoked for the past 15 days. In the emergency department, the patient underwent a 12 lead ECG showing normal sinus rhythm with prolonged NV interval and right BBB, serial troponin up trending with a recent results in . The patient is currently receiving heparin drip and aspirin. Currently denies chest pain, diaphoresis, shortness of breath or difficulty in breathing. The patient reports that he had recent angiogram in April 2024 with clean coronaries. The patient states that he is under a Cardiology from [place] and supposed to have a follow-up office visit this coming August 06, 2024. The patient is alert and oriented but somehow poor historian, the son was contacted to verify cardiac history who states that the patient was supposed to take blood thinners but for some reason had stopped. Significant past medical history of hypertension, hyperlipidemia, diabetes, and possible noncompliance. Reviewed: H&P Changes from previous H/P or p: No Changes General: Per HPI Objective Vitals Vital Signs Date Time Temp Pulse Resp B/P (MAP) Pulse Ox O2 Delivery O2 Flow Rate FiO2 07/28/24 18:18 60 18 113/41 07/28/24 16:00 98.2 99 98.2 07/28/24 08:00 Nasal Cannula* 2 28 Intake/Output Intake and Output 07/28/24 07:00 Intake Total 172 ml Output Total 0 ml Balance 172 ml Intake Oral 0 ml IV Total 172 ml Output Urine Total 0 ml Exam GENERAL: Alert and interactive. No acute distress. HEAD: Head is normocephalic and atraumatic. EYES: EOMI, PERRL. No scleral icterus. No conjunctival injection. ENT: Moist mucous membranes. NECK: Supple, No masses, Full range of motion. RESPIRATORY: No tachypnea. Clear breath sounds bilaterally. No wheezing, rales, rhonchi. CV: Regular rate and rhythm. No shortness of breath, no dyspnea GI/: Active bowel sounds, soft, nondistended, nontender. No guarding. No rebound. No masses. No CVA tenderness. INTEGUMENTARY: Warm and dry. No obvious rashes. NEUROLOGIC: Alert and oriented. Face is symmetric. Speech is normal. Moves all extremities equally. Medications Current Medications Medications Dose Ordered Sig/Joe Route Start Time Stop Time Status Last Admin Dose Admin Ondansetron HCl 4 mg Q4HP PRN IV 07/27/24 23:15 07/28/24 00:09 4 MG Nitroglycerin 0.4 mg Q5MINP PRN SL 07/27/24 23:15 07/28/24 18:02 0.4 MG Morphine Sulfate 2 mg Q30M PRN IV 07/27/24 23:15 07/28/24 17:48 2 MG Aspirin 81 mg DAILY PO 07/29/24 10:00 Atorvastatin Calcium 40 mg HS PO 07/28/24 22:00 Furosemide 20 mg DAILY IV 07/29/24 10:00 Metoprolol Succinate 50 mg DAILY PO 07/29/24 10:00 Clopidogrel Bisulfate 75 mg DAILY PO 07/29/24 10:00 Heparin Sodium/ Dextrose 250 ml @ 9 mls/hr Q24H IV 07/28/24 19:45 Laboratory Results Laboratory Tests 07/28/24 04:21 Chemistry Test 07/27/24 20:38 07/28/24 04:21 Calcium Level 9.1 mg/dL (8.7-10.4) 8.9 mg/dL (8.7-10.4) Albumin 3.1 g/dL (3.2-4.8) L Magnesium Level 2.3 mg/dL (1.6-2.6) Total Protein 6.6 g/dL (5.7-8.2) Coagulation Test 07/27/24 20:38 07/28/24 04:21 07/28/24 11:05 07/28/24 18:51 Prothrombin Time 11.4 sec (9.3-11.8) 11.7 sec (9.3-11.8) 11.9 sec (9.3-11.8) H 11.4 sec (9.3-11.8) Prothrombin Time INR 1.08 (0.9-1.15) 1.12 (0.9-1.15) 1.14 (0.9-1.15) 1.08 (0.9-1.15) Activated Partial Thromboplast Time 35.8 SEC (24.5-34.5) H 53.0 SEC (24.5-34.5) H 87.7 SEC (24.5-34.5) *H 42.0 SEC (24.5-34.5) H Lipid panel Test 07/27/24 23:10 Cholesterol Level 100 mg/dL (< 200) HDL Cholesterol 9 mg/dL (40-59) L Triglycerides Level 183 mg/dL (< 150) H Cardiac Markers Test 07/27/24 20:38 07/28/24 04:22 B-Type Natriuretic Peptide 605.43 pg/mL (0-100) 1217.74 pg/mL (0-100) LFT Test 07/28/24 04:21 Alanine Aminotransferase (ALT) 10 U/L (7-40) Alkaline Phosphatase 81 U/L (46-116) Aspartate Amino Transferase (AST) 36 U/L (13-40) Total Bilirubin 0.6 mg/dL (0.2-1.0) HgA1c, TSH Test 07/27/24 23:10 Thyroid Stimulating Hormone (TSH) 1.50 uIU/mL (0.55-4.78) Urinalysis Test 07/28/24 08:45 Urine Color Yellow (Yellow) Urine Clarity Hazy (Clear) H Urine pH 5.5 (5.0-9.0) Urine Specific [place] 1.013 (1.001-1.035) Urine Protein 1+ (Negative) H Urine Ketones Negative (Negative) Urine Blood Negative /uL (Negative) Urine Nitrite Negative (Negative) Urine Bilirubin Negative (Negative) Urine Urobilinogen Normal mg/dL (Negative) Urine Leukocyte Esterase Negative /uL (Negative) Urine RBC 3 /hpf (0 - 3) Urine Microscopic WBC 7 /HPF (0-3) H Urine Squamous Epithelial Cells Few /hpf (<5) Urine Bacteria Few /hpf (None Seen) H Urine Creatinine 112.81 mg/dL (30.0-125.0) Urine Sodium 23 mmol/L (40-220) L Urine Glucose Normal mg/dL (Normal) Urine Total Protein 71.7 mg/dL (1-14) H Labs and/or images reviewed: Labs reviewed by me, Image(s) reviewed by me Assessment/Plan Assessment/Plan 07/28 patient presenting with chest pain. EKG abnormal likely old findings but troponin elevated but is downtrending. Angiogram April 2024 was clean. Patient will need to evaluate by Cardiology again. Patient is either altered or has dementia as he does not know his complete history or his meds. Likely poor medication compliance. No family for collateral. Patient also has CKD and thrombocytopenia, significant BNP. Patient was anticoagulated aspirin and heparin drip with plan for near future left heart catheterization but pending and holding off due to CKD. LFT pattern suggests possible alcohol history. 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
--- NOTE | 2024-07-28 20:47 | ECG ---
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
[2024-07-28] MEDS: ATORVASTATIN 20 MG TAB PO SCH (21:13)
--- NOTE | 2024-07-28 23:34 | DVHSR ---
APPROVED REPORT EXAM: Two-dimensional and M-mode echocardiogram with Doppler and color Doppler. Blood Pressure: 131/77 mmHg INDICATION Chest Pain RISK FACTORS Height: 5'9", Weight: 170 DIMENSIONS LVDd6.8 (3.8-5.7cm)LA (2D)4.8 (1.9-4.0cm)Aortic Root3.6 (2.0-3.7cm) LVDs5.2 (2.5-4.0cm)LA (MM) (1.9-4.0cm)Aortic Cusp Exc2.3 (1.5-2.0cm) EF (%) 53.0 (55-70%)Rt. Atrium5.0 (1.9-4.0cm)Asc. Aorta cm IVSd1.0 (0.7-1.1cm)RV (D)4.6 (1.8-2.4cm) PWd1.0 (0.7-1.1cm) Mitral Valve MitralMitral Stenosis E wave0.62m/sMV Mean GR.mmHg A wave0.96m/sMV Peak GR.mmHg E/A ratio0.62D MVAcm2 DECEL [id number] 1/2 Timems Aortic Valve Aortic ValveAortic Stenosis V10.93m/Carmela Mean GR.10mmHg V22.24m/Carmela Peak GR.20mmHg LVOT Diameter2.5 (1.8-2.4cm)Doppler AVA2.04cm2 AI P 1/2 Arpq088.36ms Pulmonic Valve V20.88m/s Conclusion LV IS SLIGHTLY DILATED LV F IS 55% AND IS NORMAL MODERATELY DILATED RV AND RA MODERATELY CALCIFIED AORTIC LEAFLETS MODERATE DEGREE AORTIC REGURGITATION PEAK GRADIENT ACROSS AORTIC VALVE IS 20 MM OF HG AND MEAN GRADIENT IS 10 MM OF HG AORTIC VALVE AREA IS 2.09 CM CMSQUARE NO EFFUSION SUGGESTION REPEAT ECHO EVERY YEAR FOR EVALUATION OF AORTIC VALVE
[2024-07-29] VITALS (50 sets, daily range): BP systolic 94–147; BP diastolic 28–117; PULSE 55–97; RESP 8–22; TEMP 97.6–97.9; O2SAT 93–100
[2024-07-29 02:15] LABS: INR 1.12 (0.9-1.15); Partial Thromboplastin Time 68.8 SEC (24.5-34.5); Prothrombin Time 11.7 sec (9.3-11.8)
[2024-07-29 06:42] LABS: Basophils # (auto) 0 10 ^3/uL (0-0.2); Basophils % (auto) 0.2 % (0.0-2.0); Eosinophils # (auto) 0.1 10 ^3/uL (0-0.8); Eosinophils % (auto) 1.5 % (0.0-7.0); Hematocrit 30.1 % (41.0-53.0); Hemoglobin 9.9 g/dL (13.5-17.5); Lymphocytes # (auto) 0.8 10 ^3/uL (0.4-5.4); Lymphocytes % (auto) 8.9 % (10.0-50.0); Mean Corpuscular Hemoglobin 29.8 pg (28.0-32.0); Mean Corpuscular Hgb Conc. 32.9 g/dL (32.0-36.0); Mean Corpuscular Volume 90.5 fL (80.0-100.0); Monocytes # (auto) 0.8 10 ^3/uL (0-1.3); Monocytes % (auto) 8.8 % (0.0-12.0); Neutrophils # (auto) 7.1 10 ^3/uL (1.6-8.6); Neutrophils % (auto) 80.6 % (37.0-80.0); Platelet Count (auto) 73 10^3/uL (140-450); Red Blood Cells 3.33 10^6/uL (4.5-5.90); White Blood Cell 8.8 10^3/uL (4.4-10.8)
[2024-07-29 06:58] LABS: Alanine Aminotransferase < 9 U/L (7-40); Albumin 2.7 g/dL (3.2-4.8); Alkaline Phosphatase 77 U/L (46-116); Anion Gap 10 (5-15); Aspartate Aminotransferase 32 U/L (13-40); BUN/Creatinine Ratio 16.5 (10.0-20.0); Blood Urea Nitrogen 42 mg/dL (9-23); Calcium 8.6 mg/dL (8.7-10.4); Carbon Dioxide 19 mmol/L (20-31); Chloride 101 mmol/L (98-107); Glucose 126 mg/dL (74-106); Potassium 4.3 mmol/L (3.5-5.1); Sodium 130 mmol/L (136-145); Total Protein 5.9 g/dL (5.7-8.2)
[2024-07-29 06:59] LABS: Bilirubin, Total 0.5 mg/dL (0.2-1.0); Phosphorus 4.6 mg/dL (2.4-5.1)
[2024-07-29 07:15] LABS: Uric Acid 9.6 mg/dL (3.7-9.2)
[2024-07-29] MEDS: CLOPIDOGREL BISULFATE 75 MG TAB PO SCH (07:19)
--- NOTE | 2024-07-29 08:15 | DVHPN2 ---
Subjective Complaint of chest pain Reviewed: H&P Changes from previous H/P or p: No Changes General: Per HPI Objective Vitals Vital Signs Date Time Temp Pulse Resp B/P (MAP) Pulse Ox O2 Delivery O2 Flow Rate FiO2 07/29/24 07:19 87 22 138/60 07/29/24 05:00 97.6 99 97.6 07/28/24 20:00 Room Air* 0 21 Intake/Output Intake and Output 07/29/24 07:00 Intake Total 920 ml Output Total 900 ml Balance 20 ml Intake Oral 920 ml Output Urine Total 900 ml # Voids 1 General Appearance: Alert, Oriented X3, No acute distress Lungs: Clear to auscultation Cardiovascular: Regular rate, Normal S1, Normal S2 Medications Current Medications Medications Dose Ordered Sig/Joe Route Start Time Stop Time Status Last Admin Dose Admin Ondansetron HCl 4 mg Q4HP PRN IV 07/27/24 23:15 07/28/24 00:09 4 MG Nitroglycerin 0.4 mg Q5MINP PRN SL 07/27/24 23:15 07/29/24 04:22 0.4 MG Morphine Sulfate 2 mg Q30M PRN IV 07/27/24 23:15 07/29/24 07:19 2 MG Aspirin 81 mg DAILY PO 07/29/24 10:00 Atorvastatin Calcium 40 mg HS PO 07/28/24 22:00 07/28/24 21:13 40 MG Furosemide 20 mg DAILY IV 07/29/24 10:00 Metoprolol Succinate 50 mg DAILY PO 07/29/24 10:00 Clopidogrel Bisulfate 75 mg DAILY PO 07/29/24 10:00 07/29/24 07:19 75 MG Heparin Sodium/ Dextrose 250 ml @ 9 mls/hr Q24H IV 07/28/24 19:45 07/28/24 19:45 9 MLS/HR Laboratory Results Laboratory Tests 07/29/24 05:36 Chemistry Test 07/29/24 05:36 Albumin 2.7 g/dL (3.2-4.8) L Calcium Level 8.6 mg/dL (8.7-10.4) L Phosphorus Level 4.6 mg/dL (2.4-5.1) Total Protein 5.9 g/dL (5.7-8.2) Coagulation Test 07/28/24 11:05 07/28/24 18:51 07/29/24 01:52 Prothrombin Time 11.9 sec (9.3-11.8) H 11.4 sec (9.3-11.8) 11.7 sec (9.3-11.8) Prothrombin Time INR 1.14 (0.9-1.15) 1.08 (0.9-1.15) 1.12 (0.9-1.15) Activated Partial Thromboplast Time 87.7 SEC (24.5-34.5) *H 42.0 SEC (24.5-34.5) H 68.8 SEC (24.5-34.5) H Cardiac Markers Test 07/29/24 05:36 B-Type Natriuretic Peptide 908.81 pg/mL (0-100) LFT Test 07/29/24 05:36 Alanine Aminotransferase (ALT) < 9 U/L (7-40) Alkaline Phosphatase 77 U/L (46-116) Aspartate Amino Transferase (AST) 32 U/L (13-40) Total Bilirubin 0.5 mg/dL (0.2-1.0) HgA1c, TSH Test 07/29/24 05:36 Thyroid Stimulating Hormone (TSH) 1.03 uIU/mL (0.55-4.78) Urinalysis Test 07/28/24 08:45 Urine Color Yellow (Yellow) Urine Clarity Hazy (Clear) H Urine pH 5.5 (5.0-9.0) Urine Specific [place] 1.013 (1.001-1.035) Urine Protein 1+ (Negative) H Urine Ketones Negative (Negative) Urine Blood Negative /uL (Negative) Urine Nitrite Negative (Negative) Urine Bilirubin Negative (Negative) Urine Urobilinogen Normal mg/dL (Negative) Urine Leukocyte Esterase Negative /uL (Negative) Urine RBC 3 /hpf (0 - 3) Urine Microscopic WBC 7 /HPF (0-3) H Urine Squamous Epithelial Cells Few /hpf (<5) Urine Bacteria Few /hpf (None Seen) H Urine Creatinine 112.81 mg/dL (30.0-125.0) Urine Sodium 23 mmol/L (40-220) L Urine Glucose Normal mg/dL (Normal) Urine Total Protein 71.7 mg/dL (1-14) H Assessment/Plan Assessment/Plan Rule out progressive CAD s/p PCI x 1 stent in RCA in April 2024 NSTEMI Rule out ACS Rule out structural heart disease Endocarditis RACHEL on possible CKD 4 Hypertension Dyslipidemia Diabetes type 2 Plan/Recommendation Plan/recommendations (Dr. Wong ): * Echocardiogram reveals EF 55% * ACS protocol - heparin drip, asa, statins * IV fluid to optimize kidney function * Nephrology consult to evaluate for tentative [facility] plan once kidney function is improved * Lasix, monitor kidney function closely, monitor intake and output, daily weight * Consult infectious disease * Started on ceftriaxone, blood culture * Continue with nitroglycerin drip and heparin drip Given the patient's clinical presentation, up trending troponin levels, the patient may benefit from a coronary angiogram with left heart catheterization.The procedure was discussed with the patient in full detail including risks and benefits. Risks include but are not limited to bleeding, contrast-induced nephropathy, stroke, and even . This medical document was created using an electronic medical record system with voice recognition software and computerized dictation system. Although this document has been carefully reviewed, there might still be some phonetic and typographical errors. Occasional wrong-word or ``sound-alike substitutions may have occurred due to the inherent limitations of voice recognition software. These areas are purely typographical due to imperfections of the software programs and do not reflect any compromise in the patient's medical care. Please read the chart carefully and recognize, using context, where these substitutions have occurred. 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 CONS 07/28/24 Transmitted -[place] 18:58 Communication Order ORDERS 07/28/24 Transmitted 18:58 NS PHA 07/29/24 Verified 08:15 B-Type Natriuretic LAB 07/30/24 Verified Peptide 04:00 Electrocardigram EKG 07/29/24 Verified 08:09 Complete Blood Count LAB 07/30/24 Verified 04:00 Comprehensive LAB 07/30/24 Verified Metabolic Panel 04:00 Date of Service: Jul 29, 2024 Billing Provider: PETRONA WNOG MD Common Visit Codes: CONSULT ONLY Consultation Codes: 23585-DGUHEREAI CONSULT <60MIN FREDY LARA VACUUM APPLICATOR OPERATOR Jul 29, 2024 08:15
[2024-07-29 08:56] LABS: INR 1.15 (0.9-1.15); Partial Thromboplastin Time 64.2 SEC (24.5-34.5)
[2024-07-29] MEDS: METOPROLOL SUCCINATE XL 50 MG TAB PO SCH (10:00)
[2024-07-29] MEDS: FUROSEMIDE 20 MG/2 ML VIAL IV SCH (10:00)
[2024-07-29] MEDS: ASPirin 81 mg TAB PO SCH (10:00)
[2024-07-29] MEDS: SODIUM CHLORIDE 0.9% 1,000 ML IV SCH (10:08)
--- NOTE | 2024-07-29 10:56 | ECG ---
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
[2024-07-29] MEDS: NITROGLYCERIN 50MG/250ML 250 ML IV ONE (11:58)
[2024-07-29] MEDS: NITROGLYCERIN 50MG/250ML 250 ML IV SCH (11:58)
[2024-07-29] MEDS: cefTRIAXone 1GM/50ML D5W 50 ML IV ONE (15:04)
--- NOTE | 2024-07-29 15:12 | DVHPN2 ---
Progress Note Date Seen: Jul 29, 2024 Medical Necessity Reason Pt with a Central, PICC or Fol: No Subjective Review of Systems Pt was upgraded to [place] d/t CP and cardiology placed pt on nitro gtt Objective vital signs Vital Sign Date Time Temp Pulse Resp B/P (MAP) Pulse Ox O2 Delivery O2 Flow Rate FiO2 07/29/24 14:45 73 10 107/32 (57) 95 07/29/24 09:00 97.6 97.6 07/29/24 07:30 Nasal Cannula* 2 28 Total Intake and Output 07/28/24 07/28/24 07/29/24 15:00 23:00 07:00 Intake Total 0 ml 920 ml Output Total 500 ml 400 ml Balance -500 ml 520 ml medications Current Medications Medications Dose Ordered Sig/Joe Route Start Time Stop Time Status Last Admin Dose Admin Ondansetron HCl 4 mg Q4HP PRN IV 07/27/24 23:15 07/28/24 00:09 4 MG Nitroglycerin 0.4 mg Q5MINP PRN SL 07/27/24 23:15 07/29/24 10:19 0.4 MG Morphine Sulfate 2 mg Q30M PRN IV 07/27/24 23:15 07/29/24 10:08 2 MG Aspirin 81 mg DAILY PO 07/29/24 10:00 Atorvastatin Calcium 40 mg HS PO 07/28/24 22:00 07/28/24 21:13 40 MG Furosemide 20 mg DAILY IV 07/29/24 10:00 Metoprolol Succinate 50 mg DAILY PO 07/29/24 10:00 Clopidogrel Bisulfate 75 mg DAILY PO 07/29/24 10:00 07/29/24 07:19 75 MG Heparin Sodium/ Dextrose 250 ml @ 9 mls/hr Q24H IV 07/28/24 19:45 07/28/24 19:45 9 MLS/HR Sodium Chloride 1,000 ml @ 75 mls/hr Q03P10P IV 07/29/24 08:15 07/29/24 10:08 75 MLS/HR Nitroglycerin 250 ml @ 1.5 mls/hr Q24H IV 07/29/24 11:15 07/29/24 11:58 1.5 MLS/HR Ceftriaxone Sodium 50 ml @ 100 mls/hr DAILY@09 IV 07/30/24 09:00 Examination Gen: Appears stated age, no acute distress HEENT:Pupils equal and reactive to light and accommodation Lungs: Bilateral air entry, no rales CVS: RRR, normal S1 and S2 Ext: No edema Neuro: A&O x4 laboratory and microbiology Laboratory Tests 07/29/24 05:36 Test 07/29/24 05:36 Range/Units Serum Glucose 126 H 74-106 mg/dL Labs and/or images reviewed: Labs reviewed by me Problem List/Assessment/Plan Problem List/Assessment/Plan IMP RACHEL hemodynamically mediated- possible CRS baseline serum creat unknown, unknown hx of CKD Mild hyponatremia- Na 130 NSTEMI Hx of HTN HX of type 2 DM REC Agree with IVF BMP, urine osmolality Strict I&O's Avoidance of nephrotoxins Pt is at higher risk for more significant contrast induced nephropathy. Severity of risk for [place] to correlate to volume of iodinated contrast that may be required for diagnostic or therapeutic purposes. We will continue to follow Plan discussed with: Patient BUNCHEDILBERTO LARATIMOTHY RAMIREZ Jul 29, 2024 15:12
[2024-07-29 15:55] LABS: INR 1.18 (0.9-1.15); Prothrombin Time 12.3 sec (9.3-11.8)
[2024-07-29 15:56] LABS: Partial Thromboplastin Time 80.9 SEC (24.5-34.5)
--- NOTE | 2024-07-29 16:08 | CONS ---
Pharmacy Clinical Information: HEPARIN DRIP RATE DECREASED TO 700 UNITS/HR = 7 ML/HR PER APTT OF 80.9. CONFIRMED WITH MAHIN NGUYEN NEXT APTT DRAW SCHEDULED FOR 2200 PER RX PROTOCOL. SHIRIN GAONA PHARMACIST Jul 29, 2024 16:08
--- NOTE | 2024-07-29 18:07 | DVHPN2 ---
Subjective 64-year-old male presents in ED via EMS with a chief complaint of chest pain. The patient reports chest pressure pain nonradiating, non provoked for the past 15 days. In the emergency department, the patient underwent a 12 lead ECG showing normal sinus rhythm with prolonged MO interval and right BBB, serial troponin up trending with a recent results in . The patient is currently receiving heparin drip and aspirin. Currently denies chest pain, diaphoresis, shortness of breath or difficulty in breathing. The patient reports that he had recent angiogram in April 2024 with clean coronaries. The patient states that he is under a Cardiology from [place] and supposed to have a follow-up office visit this coming August 06, 2024. The patient is alert and oriented but somehow poor historian, the son was contacted to verify cardiac history who states that the patient was supposed to take blood thinners but for some reason had stopped. Significant past medical history of hypertension, hyperlipidemia, diabetes, and possible noncompliance. Reviewed: H&P Changes from previous H/P or p: No Changes General: Per HPI Objective Vitals Vital Signs Date Time Temp Pulse Resp B/P (MAP) Pulse Ox O2 Delivery O2 Flow Rate FiO2 07/29/24 18:00 75 07/29/24 17:45 9 95/29 (51) 98 07/29/24 16:00 97.9 97.9 07/29/24 07:30 Nasal Cannula* 2 28 Intake/Output Intake and Output 07/29/24 07:00 Intake Total 920 ml Output Total 900 ml Balance 20 ml Intake Oral 920 ml Output Urine Total 900 ml # Voids 1 Exam GENERAL: Alert and interactive. No acute distress. HEAD: Head is normocephalic and atraumatic. EYES: EOMI, PERRL. No scleral icterus. No conjunctival injection. ENT: Moist mucous membranes. NECK: Supple, No masses, Full range of motion. RESPIRATORY: No tachypnea. Clear breath sounds bilaterally. No wheezing, rales, rhonchi. CV: Regular rate and rhythm. No shortness of breath, no dyspnea GI/: Active bowel sounds, soft, nondistended, nontender. No guarding. No rebound. No masses. No CVA tenderness. INTEGUMENTARY: Warm and dry. No obvious rashes. NEUROLOGIC: Alert and oriented. Face is symmetric. Speech is normal. Moves all extremities equally. General Appearance: Alert, Oriented X3, No acute distress Lungs: Clear to auscultation Cardiovascular: Regular rate, Normal S1, Normal S2 Medications Current Medications Medications Dose Ordered Sig/Joe Route Start Time Stop Time Status Last Admin Dose Admin Ondansetron HCl 4 mg Q4HP PRN IV 07/27/24 23:15 07/28/24 00:09 4 MG Nitroglycerin 0.4 mg Q5MINP PRN SL 07/27/24 23:15 07/29/24 10:19 0.4 MG Morphine Sulfate 2 mg Q30M PRN IV 07/27/24 23:15 07/29/24 16:45 2 MG Aspirin 81 mg DAILY PO 07/29/24 10:00 Atorvastatin Calcium 40 mg HS PO 07/28/24 22:00 07/28/24 21:13 40 MG Furosemide 20 mg DAILY IV 07/29/24 10:00 Metoprolol Succinate 50 mg DAILY PO 07/29/24 10:00 Clopidogrel Bisulfate 75 mg DAILY PO 07/29/24 10:00 07/29/24 07:19 75 MG Sodium Chloride 1,000 ml @ 75 mls/hr [id number] IV 07/29/24 08:15 07/29/24 10:08 75 MLS/HR Nitroglycerin 250 ml @ 1.5 mls/hr Q24H IV 07/29/24 11:15 07/29/24 11:58 1.5 MLS/HR Ceftriaxone Sodium 50 ml @ 100 mls/hr DAILY@09 IV 07/30/24 09:00 Heparin Sodium/ Dextrose 250 ml @ 7 mls/hr Q24H IV 07/29/24 16:15 Laboratory Results Laboratory Tests 07/29/24 05:36 Chemistry Test 07/29/24 05:36 Albumin 2.7 g/dL (3.2-4.8) L Calcium Level 8.6 mg/dL (8.7-10.4) L Phosphorus Level 4.6 mg/dL (2.4-5.1) Total Protein 5.9 g/dL (5.7-8.2) Coagulation Test 07/28/24 18:51 07/29/24 01:52 07/29/24 05:36 07/29/24 15:23 Prothrombin Time 11.4 sec (9.3-11.8) 11.7 sec (9.3-11.8) 12.0 sec (9.3-11.8) H 12.3 sec (9.3-11.8) H Prothrombin Time INR 1.08 (0.9-1.15) 1.12 (0.9-1.15) 1.15 (0.9-1.15) 1.18 (0.9-1.15) H Activated Partial Thromboplast Time 42.0 SEC (24.5-34.5) H 68.8 SEC (24.5-34.5) H 64.2 SEC (24.5-34.5) H 80.9 SEC (24.5-34.5) *H Cardiac Markers Test 07/29/24 05:36 B-Type Natriuretic Peptide 908.81 pg/mL (0-100) LFT Test 07/29/24 05:36 Alanine Aminotransferase (ALT) < 9 U/L (7-40) Alkaline Phosphatase 77 U/L (46-116) Aspartate Amino Transferase (AST) 32 U/L (13-40) Total Bilirubin 0.5 mg/dL (0.2-1.0) HgA1c, TSH Test 07/29/24 05:36 Thyroid Stimulating Hormone (TSH) 1.03 uIU/mL (0.55-4.78) Urinalysis Test 07/28/24 08:45 Urine Color Yellow (Yellow) Urine Clarity Hazy (Clear) H Urine pH 5.5 (5.0-9.0) Urine Specific [place] 1.013 (1.001-1.035) Urine Protein 1+ (Negative) H Urine Ketones Negative (Negative) Urine Blood Negative /uL (Negative) Urine Nitrite Negative (Negative) Urine Bilirubin Negative (Negative) Urine Urobilinogen Normal mg/dL (Negative) Urine Leukocyte Esterase Negative /uL (Negative) Urine RBC 3 /hpf (0 - 3) Urine Microscopic WBC 7 /HPF (0-3) H Urine Squamous Epithelial Cells Few /hpf (<5) Urine Bacteria Few /hpf (None Seen) H Urine Creatinine 112.81 mg/dL (30.0-125.0) Urine Sodium 23 mmol/L (40-220) L Urine Glucose Normal mg/dL (Normal) Urine Total Protein 71.7 mg/dL (1-14) H Labs and/or images reviewed: Labs reviewed by me, Image(s) reviewed by me Assessment/Plan Assessment/Plan Update 07/29 07/28 patient presenting with chest pain. EKG abnormal likely old findings but troponin elevated but is downtrending. Angiogram April 2024 was clean. Patient will need to evaluate by Cardiology again. Patient is either altered or has dementia as he does not know his complete history or his meds. Likely poor medication compliance. No family for collateral. Patient also has CKD and thrombocytopenia, significant BNP. Patient was anticoagulated aspirin and heparin drip with plan for near future left heart catheterization but pending and holding off due to CKD. LFT pattern suggests possible alcohol history. 07/29 this a.m. and overnight patient continues to have chest pain substernal pressure-like. Patient appears to have some level of dementia as he is not completely aware of his situation or his medical history. During these chest pain episodes patient is grabbing his chest the appears to be severe. Multiple nitroglycerin was given and EKGs. EKGs remain to show no changes and are unchanged from admit. Cardiology is aware. We will have to escalate patient to D OU and start nitroglycerin drip. If patient continues to have chest pain while on nitroglycerin drip he will need stat orthodontic laboratory technician whether or not Nephrology clears. 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 npo mn Heparin drip protonix [place] full code Plan discussed with: Patient My Orders Orders - STEVE MELÉNDEZ MD Procedure Category Date Status Time Transfer Orders XFER 07/29/24 Transmitted 11:13 Nitroglycerin PHA 07/29/24 In Process 50mg/250ml (Tridil) 11:15 Electrocardigram EKG 07/29/24 Logged 11:26 Electrocardigram EKG 07/29/24 Logged 12:26 Date of Service: Jul 29, 2024 Billing Provider: STEVE MELÉNDEZ MD Common Visit Codes: 62571-[id number] CARE 30-74 MIN STEVE MELÉNDEZ MD Jul 29, 2024 18:07
[2024-07-29] MEDS: HEPARIN DRIP/D5W 100UNITS/ML 250 ML IV SCH (21:28)
--- NOTE | 2024-07-29 22:03 | DVHPN2 ---
Consult Progress Note Subjective Other Systems: Patient was seen and evaluated in follow up in the ICU. Patient was transferred to the ICU due to uptrending troponin levels. Patient complains of chest pain. HGB 9.9, HCT 30.1, TROP 4000. Objective vital signs Vital Sign Date Time Temp Pulse Resp B/P (MAP) Pulse Ox O2 Delivery O2 Flow Rate FiO2 07/29/24 14:45 73 10 107/32 (57) 95 07/29/24 09:00 97.6 97.6 07/29/24 07:30 Nasal Cannula* 2 28 Total Intake and Output 07/28/24 07/28/24 07/29/24 15:00 23:00 07:00 Intake Total 0 ml 920 ml Output Total 500 ml 400 ml Balance -500 ml 520 ml medications Current Medications Medications Dose Ordered Sig/Joe Route Start Time Stop Time Status Last Admin Dose Admin Ondansetron HCl 4 mg Q4HP PRN IV 07/27/24 23:15 07/28/24 00:09 4 MG Nitroglycerin 0.4 mg Q5MINP PRN SL 07/27/24 23:15 07/29/24 10:19 0.4 MG Morphine Sulfate 2 mg Q30M PRN IV 07/27/24 23:15 07/29/24 10:08 2 MG Aspirin 81 mg DAILY PO 07/29/24 10:00 Atorvastatin Calcium 40 mg HS PO 07/28/24 22:00 07/28/24 21:13 40 MG Furosemide 20 mg DAILY IV 07/29/24 10:00 Metoprolol Succinate 50 mg DAILY PO 07/29/24 10:00 Clopidogrel Bisulfate 75 mg DAILY PO 07/29/24 10:00 07/29/24 07:19 75 MG Sodium Chloride 1,000 ml @ 75 mls/hr [id number] IV 07/29/24 08:15 07/29/24 10:08 75 MLS/HR Nitroglycerin 250 ml @ 1.5 mls/hr Q24H IV 07/29/24 11:15 07/29/24 11:58 1.5 MLS/HR Ceftriaxone Sodium 50 ml @ 100 mls/hr DAILY@09 IV 07/30/24 09:00 Heparin Sodium/ Dextrose 250 ml @ 7 mls/hr Q24H IV 07/29/24 16:15 Examination: GENERAL:Normal, HEENT:Normal, NECK:Normal, LUNGS:Normal, CVS:Normal, ABDOMEN:Normal, SKIN:Normal, NEURO:Normal laboratory and microbiology Laboratory Tests 07/29/24 05:36 Test 07/29/24 05:36 Range/Units Serum Glucose 126 H 74-106 mg/dL Problem List/Assessment/Plan Problem List/Assessment/Plan Assessment NSTEMI. Rule out ACS. Rule out structural heart disease. RACHEL on possible CKD 4. Hypertension. Dyslipidemia. Diabetes type 2. Plan/Recommendation Continued all current supportive medical care. Patient has been seen by Billie Crowder NP on my behalf, her and I discussed the plan with the patient. Echocardiogram reveals EF 55%. ACS protocol - heparin drip, asa, statins. IV fluid to optimize kidney function. Nephrology consult to evaluate for tentative [facility] plan once kidney function is improved. Lasix, monitor kidney function closely, monitor intake and output, daily weight. Consult infectious disease. Started on ceftriaxone, blood culture. Continue with nitroglycerin drip and heparin drip. Given the patient's clinical presentation, up trending troponin levels, the patient may benefit from a coronary angiogram with left heart catheterization.The procedure was discussed with the patient in full detail including risks and benefits. Risks include but are not limited to bleeding, contrast-induced nephropathy, stroke, and even . Additional plan as per the hospital course. Plan discussed with: Patient Date of Service: Jul 29, 2024 Billing Provider: PETRONA WONG MD Cardiology Common Codes: [id number] INP/OBS CARE(Mod) Cardiology Consultation Codes: [id number] CONSULT <60MIN PETRONA WONG MD Jul 29, 2024 16:13
[2024-07-29 22:29] LABS: INR 1.15 (0.9-1.15); Partial Thromboplastin Time 64.3 SEC (24.5-34.5)
[2024-07-30] VITALS (65 sets, daily range): BP systolic 97–136; BP diastolic 32–86; PULSE 73–118; RESP 9–21; TEMP 97.8–98.5; O2SAT 91–100
[2024-07-30 03:49] LABS: Basophils # (auto) 0 10 ^3/uL (0-0.2); Basophils % (auto) 0.3 % (0.0-2.0); Eosinophils # (auto) 0.1 10 ^3/uL (0-0.8); Eosinophils % (auto) 0.7 % (0.0-7.0); Hematocrit 25.5 % (41.0-53.0); Hemoglobin 8.8 g/dL (13.5-17.5); Lymphocytes # (auto) 0.7 10 ^3/uL (0.4-5.4); Lymphocytes % (auto) 7.7 % (10.0-50.0); Mean Corpuscular Hemoglobin 30.6 pg (28.0-32.0); Mean Corpuscular Hgb Conc. 34.6 g/dL (32.0-36.0); Mean Corpuscular Volume 88.3 fL (80.0-100.0); Monocytes # (auto) 0.7 10 ^3/uL (0-1.3); Monocytes % (auto) 8.3 % (0.0-12.0); Neutrophils # (auto) 7.2 10 ^3/uL (1.6-8.6); Nucleated Red Blood Cells % 0.1 %; Platelet Count (auto) 70 10^3/uL (140-450); Red Blood Cells 2.89 10^6/uL (4.5-5.90); Red Cell Distribution Width 16.6 % (11.8-14.3); White Blood Cell 8.7 10^3/uL (4.4-10.8)
[2024-07-30 04:05] LABS: Alkaline Phosphatase 68 U/L (46-116); Anion Gap 10 (5-15); Aspartate Aminotransferase 27 U/L (13-40); Chloride 102 mmol/L (98-107); Potassium 4.4 mmol/L (3.5-5.1)
[2024-07-30 04:06] LABS: Alanine Aminotransferase < 9 U/L (7-40); Albumin 2.6 g/dL (3.2-4.8); Blood Urea Nitrogen 40 mg/dL (9-23); Calcium 8.3 mg/dL (8.7-10.4); Carbon Dioxide 19 mmol/L (20-31); Glucose 149 mg/dL (74-106); Sodium 131 mmol/L (136-145); Total Protein 5.6 g/dL (5.7-8.2)
[2024-07-30 04:07] LABS: Bilirubin, Total 0.4 mg/dL (0.2-1.0)
[2024-07-30 04:09] LABS: INR 1.11 (0.9-1.15); Partial Thromboplastin Time 57.7 SEC (24.5-34.5); Prothrombin Time 11.6 sec (9.3-11.8)
[2024-07-30] MEDS: DOXYCYCLINE 100MG/100ML 100 ML IV SCH (06:11)
--- NOTE | 2024-07-30 07:46 | ECG ---
[facility] Test Date: 2024-07-28 Test Time: 08:41:54 Pat Name: JOSEPH CERDA Department: Room: 0235T Gender: M Director Staffing: : 1960 Requested By: STEVE GARCIA Order Number: [id number] Reading MD: Jeremie Camarena Measurements Intervals [place] Rate: 64 P: 21 W[place]: 365 QRS: 20 QRSD: 192 T: 144 QT: 483 QTc: 499 Interpretive Statements Sinus rhythm Prolonged [place] interval Right bundle branch block Repol abnrm suggests ischemia, diffuse leads Electronically Signed On 08-01-2024 12:14:44 PDT by Jeremie Camarena Please click the below link to view image of tracing.
--- NOTE | 2024-07-30 07:46 | ECG ---
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
--- NOTE | 2024-07-30 07:52 | ECG ---
[facility] Test Date: 2024-07-29 Test Time: 02:21:41 Pat Name: JOSEPH CERDA Department: Room: 0235T Gender: M See Supervisor: TIFFANY : 1960 Requested By: TOM ACUNA Order Number: [id number] Reading MD: Jeremie Camarena Measurements Intervals [place] Rate: 70 P: 10 [place]: 332 QRS: 67 QRSD: 183 T: 143 QT: 422 QTc: 456 Interpretive Statements Sinus rhythm Prolonged [place] interval Right bundle branch block Repol abnrm suggests ischemia, diffuse leads Baseline wander in lead(s) V4 Electronically Signed On 08-01-2024 12:16:51 PDT by Jeremie Camarena Please click the below link to view image of tracing.
--- NOTE | 2024-07-30 07:52 | ECG ---
[facility] Test Date: 2024-07-29 Test Time: 04:30:22 Pat Name: JOSEPH CERDA Department: Room: 0235T Gender: M Blueprint Reproducer: hj : 1960 Requested By: FREDY LARA Order Number: [id number] Reading MD: Jeremie Camarena Measurements Intervals [place] Rate: 80 P: 237 [place]: 273 QRS: 31 QRSD: 188 T: 191 QT: 410 QTc: 473 Interpretive Statements Sinus or ectopic atrial rhythm Atrial premature complex Prolonged [place] interval Right bundle branch block Repol abnrm suggests ischemia, diffuse leads Electronically Signed On 08-01-2024 12:18:47 PDT by Jeremie Camarena Please click the below link to view image of tracing.
--- NOTE | 2024-07-30 07:52 | ECG ---
[facility] Test Date: 2024-07-29 Test Time: 04:32:31 Pat Name: JOSEPH CERDA Department: Room: 0235T Gender: M Film Cutter: hj : 1960 Requested By: FREDY LARA Order Number: [id number] Reading MD: Jeremie Camarena Measurements Intervals [place] Rate: 82 P: 257 [place]: 178 QRS: 88 QRSD: 187 T: 173 QT: 395 QTc: 462 Interpretive Statements Sinus or ectopic atrial rhythm Atrial premature complex Right bundle branch block Repol abnrm suggests ischemia, diffuse leads Electronically Signed On 08-01-2024 12:19:18 PDT by Jeremie Camarena Please click the below link to view image of tracing.
--- NOTE | 2024-07-30 07:53 | ECG ---
[facility] Test Date: 2024-07-29 Test Time: 10:08:38 Pat Name: JOSEPH CERDA Department: Respiratoy Room: 0235T Gender: M Dishwasher: NEEL : 1960 Requested By: DENNIS PAYNE Order Number: [id number] Reading MD: Jeremie Camarena Measurements Intervals [place] Rate: 86 P: 0 [place]: 0 QRS: 115 QRSD: 204 T: 20 QT: 452 QTc: 541 Interpretive Statements Accelerated junctional rhythm RBBB and LPFB Borderline ST depression, lateral leads Baseline wander in lead(s) I Electronically Signed On 08-01-2024 12:21:16 PDT by Jeremie Camarena Please click the below link to view image of tracing.
[2024-07-30] MEDS: cefTRIAXone 1GM/50ML D5W 50 ML IV SCH (08:01)
--- NOTE | 2024-07-30 08:11 | ECG ---
[facility] Test Date: 2024-07-29 Test Time: 22:54:41 Pat Name: JOSEPH CERDA Department: ICU Room: 0235T Gender: M Adjunct Physical Education Instructor: RN : 1960 Requested By: DENNIS PAYNE Order Number: [id number] Reading MD: Jeremie Camarena Measurements Intervals [place] Rate: 91 P: 0 [place]: 178 QRS: 73 QRSD: 195 T: 27 QT: 471 QTc: 580 Interpretive Statements Accelerated junctional escape rhythm Right bundle branch block ST depr, consider ischemia, anterolateral lds Electronically Signed On 08-01-2024 12:29:15 PDT by Jeremie Camarnea Please click the below link to view image of tracing.
--- NOTE | 2024-07-30 09:09 | DVHPN2 ---
Progress Note Date Seen: Jul 30, 2024 Medical Necessity Reason Pt with a Central, PICC or Fol: No Subjective Patient reports: Feels better Objective vital signs Vital Sign Date Time Temp Pulse Resp B/P (MAP) Pulse Ox O2 Delivery O2 Flow Rate FiO2 07/30/24 09:01 110 16 121/50 07/30/24 07:47 99 Nasal Cannula* 2 28 07/30/24 04:00 97.9 97.9 Total Intake and Output 07/29/24 07/29/24 07/30/24 15:00 23:00 07:00 Intake Total 568 ml 1894.5 ml 1128.5 ml Output Total 300 ml 1050 ml Balance 568 ml 1594.5 ml 78.5 ml medications Current Medications Medications Dose Ordered Sig/Joe Route Start Time Stop Time Status Last Admin Dose Admin Ondansetron HCl 4 mg Q4HP PRN IV 07/27/24 23:15 07/28/24 00:09 4 MG Nitroglycerin 0.4 mg Q5MINP PRN SL 07/27/24 23:15 07/29/24 10:19 0.4 MG Morphine Sulfate 2 mg Q30M PRN IV 07/27/24 23:15 07/30/24 08:31 2 MG Aspirin 81 mg DAILY PO 07/29/24 10:00 07/30/24 08:01 81 MG Atorvastatin Calcium 40 mg HS PO 07/28/24 22:00 07/29/24 22:00 40 MG Furosemide 20 mg DAILY IV 07/29/24 10:00 07/30/24 08:01 20 MG Metoprolol Succinate 50 mg DAILY PO 07/29/24 10:00 Clopidogrel Bisulfate 75 mg DAILY PO 07/29/24 10:00 07/30/24 08:01 75 MG Sodium Chloride 1,000 ml @ 75 mls/hr [id number] IV 07/29/24 08:15 07/30/24 00:09 75 MLS/HR Nitroglycerin 250 ml @ 1.5 mls/hr Q24H IV 07/29/24 11:15 07/30/24 07:30 22.5 MLS/HR Ceftriaxone Sodium 50 ml @ 100 mls/hr DAILY@09 IV 07/30/24 09:00 07/30/24 08:01 100 MLS/HR Doxycycline Hyclate 100 ml @ 50 mls/hr Q12H IV 07/30/24 06:00 07/30/24 06:11 50 MLS/HR Examination: GENERAL:Abnormal, HEENT:Abnormal, LUNGS:Abnormal, CVS:Abnormal, ABDOMEN:Abnormal laboratory and microbiology Laboratory Tests 07/30/24 03:20 Test 07/30/24 03:20 Range/Units Serum Glucose 149 H 74-106 mg/dL Microbiology Date/Time Source Procedure Growth Status 07/29/24 16:45 Blood Blood Culture - Preliminary Resulted Problem List/Assessment/Plan Problem List/Assessment/Plan nstemi ckd/ danelle severe AI r/o vegetation poor historian low PLTs PT VERY HIGH RISK FOR LHC, HE WISHES TO PROCEED AFTER INFORMED CONSENT WITH RN WITH ME HIGH RISK FOR [place] ETC HAS SEVERE AI, SUSPECTED VEGETAT ION WELL HE HAD A CATH AND SOME TYPE OF VALVE PROCEDURE IN APR 2024- AT [place], VIA RADIAL AND GROIN APPROACH, HE KNOWS LITTLE TO NOTHING ABOUT WHAT OCCURED HIS DOCS ARE DOWN IN [place] BUT LIVES HERE PT WISHES TO PROCEED ONGOING CHEST PAIN, ON NITRO GTT VERY HIGH RISK PT 40 mins critical care time spent Plan discussed with: Patient Date of Service: Jul 30, 2024 Billing Provider: JAMAICA LOUIS MD Common Visit Codes: NOT BILLABLE JAMAICA LOUIS MD Jul 30, 2024 09:09
--- NOTE | 2024-07-30 09:44 | DVHINCON2 ---
Date of service: Jul 29, 2024 Allergies: Coded Allergies: NO KNOWN ALLERGIES (Unverified , 07/27/24) Current Medications Current Medications Medications (Trade) Dose Ordered Sig/Joe Route PRN Reason Start Time Stop Time Status Last Admin Aspirin 81 mg DAILY PO 07/29/24 10:00 07/30/24 08:01 Furosemide (Lasix Injection) 20 mg DAILY IV 07/29/24 10:00 07/30/24 08:01 Metoprolol Succinate (Toprol Xl) 50 mg DAILY PO 07/29/24 10:00 07/30/24 09:06 Clopidogrel Bisulfate (Plavix) 75 mg DAILY PO 07/29/24 10:00 07/30/24 08:01 Nitroglycerin 250 ml @ 1.5 mls/hr Q24H IV 07/29/24 11:15 07/30/24 07:30 Ceftriaxone Sodium 50 ml @ 100 mls/hr DAILY@09 IV 07/30/24 09:00 07/30/24 08:01 Heparin Sodium/ Dextrose 250 ml @ 7 mls/hr Q24H IV 07/29/24 16:15 07/30/24 09:03 DC 07/30/24 07:30 Doxycycline Hyclate 100 ml @ 50 mls/hr Q12H IV 07/30/24 06:00 07/30/24 06:11 Vital Signs Vital Signs Date Time Temp Pulse Resp B/P (MAP) Pulse Ox O2 Delivery O2 Flow Rate FiO2 07/30/24 09:06 110 121/50 07/30/24 09:01 16 07/30/24 07:47 99 Nasal Cannula* 2 28 07/30/24 04:00 97.9 97.9 Labs/Diagnostic Data Labs Test 07/30/24 09:06 07/30/24 03:20 07/29/24 21:06 07/29/24 12:20 Range/Units White Blood Count 8.7 4.4-10.8 10^3/uL Red Blood Count 2.89 L 4.5-5.90 10^6/uL Hemoglobin 8.8 L 13.5-17.5 g/dL Hematocrit 25.5 #L 41.0-53.0 % Mean Corpuscular Volume 88.3 80.0-100.0 fL Mean Corpuscular Hemoglobin 30.6 28.0-32.0 pg Mean Corpuscular Hemoglobin Concent 34.6 32.0-36.0 g/dL Red Cell Distribution Width 16.6 H 11.8-14.3 % Platelet Count 70 L 140-450 10^3/uL Mean Platelet Volume 8.2 6.9-10.8 fL Neutrophils (%) (Auto) 83.0 H 37.0-80.0 % Lymphocytes (%) (Auto) 7.7 L 10.0-50.0 % Monocytes (%) (Auto) 8.3 0.0-12.0 % Eosinophils (%) (Auto) 0.7 0.0-7.0 % Basophils (%) (Auto) 0.3 0.0-2.0 % Neutrophils # (Auto) 7.2 1.6-8.6 10 ^3/uL Lymphocytes # (Auto) 0.7 0.4-5.4 10 ^3/uL Monocytes # (Auto) 0.7 0-1.3 10 ^3/uL Eosinophils # (Auto) 0.1 0-0.8 10 ^3/uL Basophils # (Auto) 0 0-0.2 10 ^3/uL Nucleated Red Blood Cells 0.1 % Sodium Level 131 L 136-145 mmol/L Potassium Level 4.4 3.5-5.1 mmol/L Chloride Level 102 98-107 mmol/L Carbon Dioxide Level 19 L 20-31 mmol/L Anion Gap 10 5-15 Blood Urea Nitrogen 40 H 9-23 mg/dL Creatinine 2.11 H 0.700-1.30 mg/dL Glomerular Filtration Rate Calc 34 >90 mL/min BUN/Creatinine Ratio 19.0 10.0-20.0 Serum Glucose 149 H 74-106 mg/dL Calcium Level 8.3 L 8.7-10.4 mg/dL Total Bilirubin 0.4 0.2-1.0 mg/dL Aspartate Amino Transferase (AST) 27 13-40 U/L Alanine Aminotransferase (ALT) < 9 7-40 U/L Alkaline Phosphatase 68 46-116 U/L B-Type Natriuretic Peptide 1197.89 0-100 pg/mL Total Protein 5.6 L 5.7-8.2 g/dL Albumin 2.6 L 3.2-4.8 g/dL Urine Osmolality 380 mOsm/kg Troponin I High Sensitivity 4000 *H </=54 ng/L Test 07/29/24 05:36 07/28/24 08:45 07/28/24 04:21 07/27/24 23:10 Range/Units Uric Acid 9.6 H 3.7-9.2 mg/dL Phosphorus Level 4.6 2.4-5.1 mg/dL Thyroid Stimulating Hormone (TSH) 1.03 0.55-4.78 uIU/mL Urine Color Yellow Yellow Urine Clarity Hazy H Clear Urine pH 5.5 5.0-9.0 Urine Specific [place] 1.013 1.001-1.035 Urine Protein 1+ H Negative Urine Ketones Negative Negative Urine Blood Negative Negative /uL Urine Nitrite Negative Negative Urine Bilirubin Negative Negative Urine Urobilinogen Normal Negative mg/dL Urine Leukocyte Esterase Negative Negative /uL Urine RBC 3 0 - 3 /hpf Urine Microscopic WBC 7 H 0-3 /HPF Urine Squamous Epithelial Cells Few <5 /hpf Urine Bacteria Few H None Seen /hpf Urine Creatinine 112.81 30.0-125.0 mg/dL Urine Sodium 23 L 40-220 mmol/L Urine Glucose Normal Normal mg/dL Urine Total Protein 71.7 H 1-14 mg/dL Magnesium Level 2.3 1.6-2.6 mg/dL Triglycerides Level 183 H < 150 mg/dL Cholesterol Level 100 < 200 mg/dL LDL Cholesterol 52 < 100 mg/dL HDL Cholesterol 9 L 40-59 mg/dL Microbiology Date/Time Source Procedure Growth Status 07/29/24 16:45 Blood Blood Culture - Preliminary Resulted Problems(with codes): (1) Bacteremia (2) Murmur (3) Prolonged QT interval (4) Acute exacerbation of chronic heart failure (5) NSTEMI (non-ST elevated myocardial infarction) (6) Acute chest pain Plan/Recommendation ASSESSMENT AND PLAN: ID Problem List: - Chest pain with elevated troponin (up to 4000) - Hypertension - Diabetes mellitus - Dyslipidemia - Acute kidney injury (creatinine up to 2.71) - Thrombocytopenia (platelet count 65) - Bacteremia (Gram positive cocci in chains in blood cultures) - Possible endocarditis - Heart failure/volume overload (BNP up to 1197, moderate RV and LV dilation) - Calcified aortic valve - History of percutaneous coronary intervention - Chronic atelectasis (right lung base) Assessment: This is a 64-year-old male with a history of diabetes mellitus, dyslipidemia, hypertension, and prior percutaneous coronary intervention, admitted with intermittent, substernal chest pain (pressure, 6/10 severity). On arrival, the patient was in mild distress with ongoing chest pain. Initial evaluation demonstrated elevated troponins (up to 4000), BNP as high as 1197, and RACHEL (creatinine peaked at 2.71). Platelet count was 65. Blood cultures grew Gram positive cocci in chains in 2 out of 4 bottles on different sets. EKG revealed repolarization abnormalities (ischemia in diffuse leads), prolonged DE interval, baseline wander in V3, and borderline ST depression in lateral leads. TTE showed slightly dilated left ventricle, moderately dilated right ventricle, moderately calcified aortic leaflets (aortic valve area 2.9 cm), and increased peak gradient across the aortic valve. CXR shows chronic atelectasis of the right base. Renal ultrasound was normal. Due to rising troponins and persistent symptoms, the patient was transferred to the ICU for close monitoring and started on heparin and nitroglycerin drips. Cardiology consultation recommended left heart catheterization once renal function improves. Infectious evaluation is ongoing due to bacteremia and pos sible endocarditis (suggested by bacteremia, calcified valve, abnormal EKG, and DE interval changes). Plan: - Continue heparin and nitroglycerin drips per ICU/cardiology protocols - start daptomycin, continue Ceftriaxone - Discontinue doxycycline (not indicated) - Repeat blood cultures in 24 hours - CHRISTOPHER planned for evaluation of possible endocarditis - Monitor for hypoxia/worsening respiratory status; consider chest CT if suspicion for septic emboli arises - Follow up on blood culture sensitivities and speciation (Gram positive cocci, chains) - Infectious disease and cardiology to follow - Continue supportive care; manage blood pressure, blood glucose, and volume status per standard protocols - Dose daptomycin every other day, initiate at 8 mg/kg, adjust per renal function and lab values Assessment and plan was discussed with the patient as written above. Authorized and Performed by: Dariel Nuñez Total critical care time: Approximately 76 minutes Due to a high probability of clinically significant, life threatening deterioration, the patient required my highest level of preparedness to intervene emergently and I personally spent this critical care time directly and personally managing the patient. This critical care time included obtaining a history; examining the patient; pulse oximetry; ordering and review of studies; arranging urgent treatment with development of a management plan; evaluation of patient's response to treatment; frequent reassessment; and, discussions with other providers. This critical care time was performed to assess and manage the high probability of imminent, life-threatening deterioration that could result in multi-organ failure. It was exclusive of separately billable procedures and treating other patients and teaching time. Plan is subject to change pending incorporation of new incoming information/diagnostics. Updates may be added as addendum at the bottom (OR TOP) of this note Thank you for consult. Infectious disease will continue to follow in collaboration with cardiology and ICU teams. Please contact if questions or concerns arise. Dariel Nuñez M.D. [facility] Ph: ? Teams text: [email or web address] Electronically signed by: Dariel Nuñez MD, 07/29/2024 History: The patient's chart and medications were reviewed in detail and the patient was seen and examined. History obtained from: patient. Dominik Chakraborty is a 64-year-old male with a past medical history of diabetes ricai tus, hypertension, dyslipidemia, and prior percutaneous coronary intervention, admitted for evaluation of intermittent substernal chest pain and found to have elevated troponin, RACHEL, and bacteremia as described above. Review of Systems: A complete 10-system review of systems was completed and negative except as noted in the HPI or here. - CONSTITUTIONAL: No fever or chills reported. Temp on admission 99F. - HEENT: Not specifically discussed - RESPIRATORY: Not specifically discussed - CV: Chest pain as above. No mention of palpitations. - GI: Not specifically discussed - : Not specifically discussed - MSK: Not specifically discussed - SKIN: No open wounds - NEUROLOGICAL: Not specifically discussed - PSYCHIATRIC: Not specifically discussed Past Medical History: - Diabetes mellitus - Hypertension - Dyslipidemia - Prior percutaneous coronary intervention Past Surgical History: Not provided in transcript. Home Medications: Not provided in transcript. Allergies: Not provided in transcript. Family History: Not provided in transcript. Social History: - Tobacco use: Denies - Alcohol use: Denies - IV drug use: Denies Other aspects not provided in transcript. Objective: Vital Signs on Arrival: Temp: 99F BP: 130/42 mmHg Pulse: 90 bpm Resp: 18 SpO2: 98% Most Recent Vital Signs: Not provided in transcript. Admission Weight: Not provided in transcript. Physical Exam: General: NAD Neck: Supple. No masses. HEENT: PERRL. Normal lids and conjunctiva. Moist mucous membranes. Oropharynx without lesions, exudates or excessive erythema. Normal appearance of the external aspects of the nose and ears. Heart: Regular rhythm, normal rate. No murmur. No lower extremity edema. Lungs: Normal respiratory effort. Clear to auscultation bilaterally. No wheezes. No crackles. Abdomen: Soft. Non-tender. Non-distended. No masses or abdominal hernia. Msk: No digital cyanosis. Normal strength and tone in all 4 limbs. Skin: Warm and dry, no rashes. No open wounds. Neuro: Alert. No facial droop or slurred speech. Extra-ocular movements intact. Sensation intact to soft touch in all 4 limbs. Psych: Appropriate mood. Full affect. Oriented to person, place, time, and situation. Diagnostic Studies: Available diagnostic studies were reviewed personally. Significant relevant results and findings are outlined below or addressed in the Assessment and Plan above. Pertinent Labs: - Troponin: Up to 4000 - BNP: Up to 1197 - Creatinine: Peaked at 2.71, improving during hospitalization - Platelets: 65 - Hemoglobin: 12.0 - WBC: 11.2, improved during stay - Sodium: 113, BUN 143 Imaging: - Chest X-ray: Chronic atelectasis in right base; chronic changes, no acute process. - Renal ultrasound: Normal. EKG: - Repolarization abnormality suggesting ischemia in diffuse leads - Prolonged DE interval - Baseline wander in V3 - Borderline ST depression in lateral leads Echocardiogram (TTE): - LV slightly dilated - RV moderately dilated - Aorta and aortic valve calcified - Peak gradient across aortic valve - Aortic valve area: 2.9 cm Microbiology: - Blood cultures: Gram positive cocci in chains, 2/4 bottles on different sets Lines: Not provided in transcript. Isolation Precautions: Not provided in transcript. Addendum: None at this time. If additional information becomes available, further updates will be appended. Plan discussed with: Patient DARIEL NUÑEZ MD Jul 30, 2024 09:44
[2024-07-30] MEDS: IODIXANOL 320MG/ML 100ML BTL IV ONE (09:58)
[2024-07-30] MEDS: HEPARIN IN NS 1000Units/500mL 1,500 ML ONE (09:58)
[2024-07-30 09:59] LABS: INR 1.11 (0.9-1.15); Partial Thromboplastin Time 48.3 SEC (24.5-34.5); Prothrombin Time 11.6 sec (9.3-11.8)
[2024-07-30] MEDS: ANGIOMAX 250 MG VIAL IV ONE (10:10)
[2024-07-30] MEDS: fentaNYL CITRATE 100 MCG/2 ML VL ONE (10:10)
[2024-07-30] MEDS: VERAPAMIL 2.5MG/ML INJ 2ML VIAL IV ONE (10:10)
[2024-07-30] MEDS: LIDOCAINE 2%HCL (LOCAL ANESTH.) INJ 20ML MDV ONE (10:11)
[2024-07-30] MEDS: SODIUM CHL 0.9% 0 ML ONE (10:11)
[2024-07-30] MEDS: MIDAZOLAM HCL 2MG/2ML 2ml VIAL (1mg/ml) ONE (10:11)
[2024-07-30] MEDS: HEPARIN SODIUM (PORCINE) 5000 UNITS/ML 1ML VIAL ONE (10:36)
--- NOTE | 2024-07-30 10:44 | ECG ---
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
[2024-07-30] MEDS ORDERED: HEPARIN SODIUM (PORCINE) 5000 UNITS/ML 1ML VIAL IV ONE (10:45)
[2024-07-30] MEDS: HEPARIN DRIP/D5W 100UNITS/ML 250 ML IV SCH (10:45)
--- NOTE | 2024-07-30 10:45 | DVHOP2 ---
Operative Report Operative Report CARDIAC INSURANCE SERVICE REPRESENTATIVE PROCEDURE REPORT [place], [place] Date of Service: 07/30/24 Clarifier: Jamaica Louis MD PROCEDURES PERFORMED: Coronary angiogram, left heart catheterization, conscious sedation administration and supervision, less than 15 minutes; fluoroscopy use and interpretation. PREOPERATIVE DIAGNOSES: severe AI, nstemi, hx of cad , POSTOP DIAGNOSIS: severe AI , patent CX stents DESCRIPTION OF PROCEDURE: The patient or appropriate family signed informed consent understanding the risks, benefits and alternatives of the procedure, t hey wished to proceed. The patient was brought to the cardiac labor utilization superintendent [place]. The patient was prepped in a sterile fashion. Sedation was used per cardiac cath protocol. I administered 2 mL of 2% lidocaine to the right wrist. With an antegrade front wall puncture. I cannulated the right radial artery and placed a 6-[place] Glidesheath slender. Next, an intra-arterial spasmolytic was administered. Next, a - 6French Herndon catheter and XXXXX guide and were used for coronary angiogram and LVEDP measurement and pressure pullback. At the completion of procedure, all guides and wires were removed, and there were no immediate complications. 2000 U of IV heparin given (pt was on heparin gtt) FINDINGS: RCA: Moderate vessel off the right sinus of Valsalva, there is no severe flow limiting stenosis. in prox or mid portion with diffuse disease. distal RCA ahas 70% stenosis prior to PDA bifurcation with diffuse plaquing. LEFT MAIN: Moderate size left main, it tri furcates into LAD and circumflex and ramus . no severe stenosis mild plaquing noted. CIRCUMFLEX: Moderate caliber vessel coming off the left main with no flow l imiting stenosis. patent ostial CX to mid CX stensts with diffuse 30% ISR. RAMUS: moderate vessel, no severe stenosis, diffuse plaque. LAD: LAD is a moderate caliber vessel coming of the left main. ostium is patent with mild plaque. mid LAD has sequential 50% stenosis with diffuse distal disease of 50-60% LVEDP of 49 mmhg CONCLUSIONS: 1. moderate CAD as noted above 2. severely elevated LVEDP in setting of severe probable acute AI and possible vegetation per dr latia grijalva needs urgent tx for SAVR eval cont nitro gtt hold plavix lasix discussed with dr latia LOUIS,JAMAICA Pinedo MD Jul 30, 2024 10:45
[2024-07-30] MEDS: SODIUM CHLORIDE 0.9% 1,000 ML IV SCH (13:15)
--- NOTE | 2024-07-30 13:21 | DVHPN2 ---
Progress Note Date Seen: Jul 30, 2024 Medical Necessity Reason Pt with a Central, PICC or Fol: No Subjective Patient reports: Other (s/p LHC currently drowsy from Ativan) Review of Systems: CVS:Abnormal Objective vital signs Vital Sign Date Time Temp Pulse Resp B/P (MAP) Pulse Ox O2 Delivery O2 Flow Rate FiO2 07/30/24 12:00 106 07/30/24 10:00 123/55 07/30/24 09:01 16 07/30/24 07:47 99 Nasal Cannula* 2 28 07/30/24 04:00 97.9 97.9 Total Intake and Output 07/29/24 07/29/24 07/30/24 14:59 22:59 06:59 Intake Total 566 ml 1802.5 ml 1118.0 ml Output Total 300 ml 1050 ml Balance 566 ml 1502.5 ml 68.0 ml medications Current Medications Medications Dose Ordered Sig/Joe Route Start Time Stop Time Status Last Admin Dose Admin Ondansetron HCl 4 mg Q4HP PRN IV 07/27/24 23:15 07/28/24 00:09 4 MG Nitroglycerin 0.4 mg Q5MINP PRN SL 07/27/24 23:15 07/29/24 10:19 0.4 MG Morphine Sulfate 2 mg Q30M PRN IV 07/27/24 23:15 07/30/24 08:31 2 MG Aspirin 81 mg DAILY PO 07/29/24 10:00 07/30/24 08:01 81 MG Atorvastatin Calcium 40 mg HS PO 07/28/24 22:00 07/29/24 22:00 40 MG Furosemide 20 mg DAILY IV 07/29/24 10:00 07/30/24 08:01 20 MG Metoprolol Succinate 50 mg DAILY PO 07/29/24 10:00 07/30/24 09:06 50 MG Clopidogrel Bisulfate 75 mg DAILY PO 07/29/24 10:00 07/30/24 08:01 75 MG Nitroglycerin 250 ml @ 1.5 mls/hr Q24H IV 07/29/24 11:15 07/30/24 07:30 22.5 MLS/HR Daptomycin 650 mg/ Sodium Chloride 50 ml @ 100 mls/hr EOD IV 08/01/24 10:00 Heparin Sodium/ Dextrose 250 ml @ 9 mls/hr Q24H IV 07/30/24 10:45 07/30/24 10:45 9 MLS/HR Ceftriaxone Sodium/Dextrose 50 ml @ 50 mls/hr Q12HR@, IV 07/30/24 21:00 Sodium Chloride 1,000 ml @ 75 mls/hr [id number] IV 07/30/24 13:15 07/31/24 05:00 Examination: GENERAL:Normal, CVS:Abnormal laboratory and microbiology Laboratory Tests 07/30/24 03:20 Test 07/30/24 03:20 Range/Units Serum Glucose 149 H 74-106 mg/dL Microbiology Date/Time Source Procedure Growth Status 07/29/24 16:45 Blood Blood Culture - Preliminary Resulted Problem List/Assessment/Plan Problem List/Assessment/Plan RACHEL hemodynamically mediated- possible CRS baseline serum creat unknown, unknown hx of CKD NSTEMI chest pain s/p LHC severe AV disease Currently on IV fluid recommend placing holding parameters to prevent fluid overload. Fluids we will continue currently to improve contrast excretion. Lasix given today as well. Avoid hypotension Avoid high blood pressure Patient will receive afterload reduction if BP stable in creatinine stable. Rest of care as per Cardiology and primary medical team Monitor urinary output Plan discussed with: Patient My Orders My Orders Orders - ARGENIS DAVIS MD Procedure Category Date Status Time Sodium Chloride 0.9% PHA 07/30/24 Logged 13:15 Dietary Evaluation Review Comments: 1.To avoid uremic synptoms, recommend a Renal specific diet with 60g protein restriction. 2. Reassess protein needs after a updated nephrology consult. Expected Outcomes/Goals: maintain wt, minimised nephrotic syndroms ARGENIS DAVIS MD Jul 30, 2024 13:21
--- NOTE | 2024-07-30 13:37 | ECG ---
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
--- NOTE | 2024-07-30 15:43 | DVHPN2 ---
Subjective 64-year-old male presents in ED via EMS with a chief complaint of chest pain. The patient reports chest pressure pain nonradiating, non provoked for the past 15 days. In the emergency department, the patient underwent a 12 lead ECG showing normal sinus rhythm with prolonged NJ interval and right BBB, serial troponin up trending with a recent results in . The patient is currently receiving heparin drip and aspirin. Currently denies chest pain, diaphoresis, shortness of breath or difficulty in breathing. The patient reports that he had recent angiogram in April 2024 with clean coronaries. The patient states that he is under a Cardiology from [place] and supposed to have a follow-up office visit this coming August 06, 2024. The patient is alert and oriented but somehow poor historian, the son was contacted to verify cardiac history who states that the patient was supposed to take blood thinners but for some reason had stopped. Significant past medical history of hypertension, hyperlipidemia, diabetes, and possible noncompliance. Reviewed: H&P Changes from previous H/P or p: No Changes General: Per HPI Objective Vitals Vital Signs Date Time Temp Pulse Resp B/P (MAP) Pulse Ox O2 Delivery O2 Flow Rate FiO2 07/30/24 15:30 88 07/30/24 13:45 97.9 16 98/41 (60) 97 97.9 07/30/24 07:47 Nasal Cannula* 2 28 Intake/Output Intake and Output 07/30/24 07:00 Intake Total 3591.0 ml Output Total 1350 ml Balance 2241.0 ml Intake Oral 1840 ml IV Total 1751.0 ml Output Urine Total 1350 ml # Voids 5 Exam GENERAL: Alert and interactive. No acute distress. HEAD: Head is normocephalic and atraumatic. EYES: EOMI, PERRL. No scleral icterus. No conjunctival injection. ENT: Moist mucous membranes. NECK: Supple, No masses, Full range of motion. RESPIRATORY: No tachypnea. Clear breath sounds bilaterally. No wheezing, rales, rhonchi. CV: Regular rate and rhythm. No shortness of breath, no dyspnea GI/: Active bowel sounds, soft, nondistended, nontender. No guarding. No rebound. No masses. No CVA tenderness. INTEGUMENTARY: Warm and dry. No obvious rashes. NEUROLOGIC: Alert and oriented. Face is symmetric. Speech is normal. Moves all extremities equally. General Appearance: Alert, Oriented X3, No acute distress Lungs: Clear to auscultation Cardiovascular: Regular rate, Normal S1, Normal S2 Medications Current Medications Medications Dose Ordered Sig/Joe Route Start Time Stop Time Status Last Admin Dose Admin Ondansetron HCl 4 mg Q4HP PRN IV 07/27/24 23:15 07/28/24 00:09 4 MG Nitroglycerin 0.4 mg Q5MINP PRN SL 07/27/24 23:15 07/29/24 10:19 0.4 MG Morphine Sulfate 2 mg Q30M PRN IV 07/27/24 23:15 07/30/24 08:31 2 MG Aspirin 81 mg DAILY PO 07/29/24 10:00 07/30/24 08:01 81 MG Atorvastatin Calcium 40 mg HS PO 07/28/24 22:00 07/29/24 22:00 40 MG Furosemide 20 mg DAILY IV 07/29/24 10:00 07/30/24 08:01 20 MG Metoprolol Succinate 50 mg DAILY PO 07/29/24 10:00 07/30/24 09:06 50 MG Clopidogrel Bisulfate 75 mg DAILY PO 07/29/24 10:00 07/30/24 08:01 75 MG Nitroglycerin 250 ml @ 1.5 mls/hr Q24H IV 07/29/24 11:15 07/30/24 07:30 22.5 MLS/HR Daptomycin 650 mg/ Sodium Chloride 50 ml @ 100 mls/hr DAILY IV 07/31/24 10:00 Heparin Sodium/ Dextrose 250 ml @ 9 mls/hr Q24H IV 07/30/24 10:45 07/30/24 10:45 9 MLS/HR Ceftriaxone Sodium/Dextrose 50 ml @ 50 mls/hr Q12HR@,21 IV 07/30/24 21:00 Sodium Chloride 1,000 ml @ 75 mls/hr [id number] IV 07/30/24 13:15 07/31/24 05:00 Laboratory Results Laboratory Tests 07/30/24 03:20 Chemistry Test 07/30/24 03:20 Albumin 2.6 g/dL (3.2-4.8) L Calcium Level 8.3 mg/dL (8.7-10.4) L Total Protein 5.6 g/dL (5.7-8.2) L Coagulation Test 07/29/24 21:59 07/30/24 03:20 07/30/24 09:06 Prothrombin Time 12.0 sec (9.3-11.8) H 11.6 sec (9.3-11.8) 11.6 sec (9.3-11.8) Prothrombin Time INR 1.15 (0.9-1.15) 1.11 (0.9-1.15) 1.11 (0.9-1.15) Activated Partial Thromboplast Time 64.3 SEC (24.5-34.5) H 57.7 SEC (24.5-34.5) H 48.3 SEC (24.5-34.5) H Cardiac Markers Test 07/30/24 03:20 B-Type Natriuretic Peptide 1197.89 pg/mL (0-100) LFT Test 07/30/24 03:20 Alanine Aminotransferase (ALT) < 9 U/L (7-40) Alkaline Phosphatase 68 U/L (46-116) Aspartate Amino Transferase (AST) 27 U/L (13-40) Total Bilirubin 0.4 mg/dL (0.2-1.0) Urinalysis Test 07/28/24 08:45 07/29/24 21:06 Urine Color Yellow (Yellow) Urine Clarity Hazy (Clear) H Urine pH 5.5 (5.0-9.0) Urine Specific [place] 1.013 (1.001-1.035) Urine Protein 1+ (Negative) H Urine Ketones Negative (Negative) Urine Blood Negative /uL (Negative) Urine Nitrite Negative (Negative) Urine Bilirubin Negative (Negative) Urine Urobilinogen Normal mg/dL (Negative) Urine Leukocyte Esterase Negative /uL (Negative) Urine RBC 3 /hpf (0 - 3) Urine Microscopic WBC 7 /HPF (0-3) H Urine Squamous Epithelial Cells Few /hpf (<5) Urine Bacteria Few /hpf (None Seen) H Urine Creatinine 112.81 mg/dL (30.0-125.0) Urine Sodium 23 mmol/L (40-220) L Urine Glucose Normal mg/dL (Normal) Urine Total Protein 71.7 mg/dL (1-14) H Urine Osmolality 380 mOsm/kg Microbiology Microbiology Date/Time Source Procedure Growth Status 07/29/24 16:45 Blood Blood Culture - Preliminary Resulted Labs and/or images reviewed: Labs reviewed by me, Image(s) reviewed by me Assessment/Plan Assessment/Plan Update 07/29 07/28 patient presenting with chest pain. EKG abnormal likely old findings but troponin elevated but is downtrending. Angiogram April 2024 was clean. Patient will need to evaluate by Cardiology again. Patient is either altered or has dementia as he does not know his complete history or his meds. Likely poor medication compliance. No family for collateral. Patient also has CKD and thrombocytopenia, significant BNP. Patient was anticoagulated aspirin and heparin drip with plan for near future left heart catheterization but pending and holding off due to CKD. LFT pattern suggests possible alcohol history. 07/29 this a.m. and overnight patient continues to have chest pain substernal pressure-like. Patient appears to have some level of dementia as he is not completely aware of his situation or his medical history. During these chest pain episodes patient is grabbing his chest the appears to be severe. Multiple nitroglycerin was given and EKGs. EKGs remain to show no changes and are unchanged from admit. Cardiology is aware. We will have to escalate patient to D OU and start nitroglycerin drip. If patient continues to have chest pain while on nitroglycerin drip he will need stat microbiology lab assistant whether or not Nephrology clears. 07/30 - status post left heart catheterization, patient has stents which she did not know of which are patent. Significantly elevated LVEDP likely from aortic regurgitation. Per recommendations of Cardiology after left heart catheterization patient needs eval for AVR and is also possible vegetation needing evaluation. High-risk patient, risk for BIBIANA nephrology on board, needs to stay in D OU status for close monitoring and on nitroglycerin drip . Appreciate recs from Cardiology/Nephrology. Social consulted for need for OC for AVR/vegetation eval. 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 Nephrology consult card diet ok Heparin drip protonix [place] full code Plan discussed with: Patient My Orders Orders - STEVE MELÉNDEZ MD Procedure Category Date Status Time Communication Order ORDERS 07/30/24 Transmitted 13:31 * Pantograph Machine Operator CONS 07/30/24 Transmitted Consult Date of Service: Jul 30, 2024 Billing Provider: STEVE MELÉNDEZ MD Common Visit Codes: 41670-[id number] CARE 30-74 MIN STEVE MELÉNDEZ MD Jul 30, 2024 15:43
[2024-07-30] MEDS: FUROSEMIDE 40 MG/4 ML VIAL IV ONE (18:35)
[2024-07-30] MEDS: DAPTOMYCIN IV ONE (18:52)
[2024-07-30] MEDS: SODIUM CHL 0.9% IV ONE (18:52)
[2024-07-30 19:57] LABS: INR 1.17 (0.9-1.15); Prothrombin Time 12.2 sec (9.3-11.8)
[2024-07-30 20:00] LABS: Partial Thromboplastin Time > 139.0 SEC (24.5-34.5)
--- NOTE | 2024-07-30 20:24 | DVHINCON2 ---
Date of service: Jul 30, [address] Robert Reason for Consultation Acute hypoxic respiratory failure History of Present Illness A 64-year-old man with past medical history of CAD, dyslipidemia, hypertension, and diabetes mellitus presented to ED on 07/28/24 for evaluation of chest pain. Patient reported a 2-week history of intermittent chest pain. He stated that the pain became more intense on the day prior to presentation and would not subside. He described the pain as substernal pressure, nonradiating, 6/10 in intensity. Denied shortness or breath, nausea or vomiting. Patient was admitted for further care, and pulmonary consultation is requested for e valuation and management of acute hypoxic respiratory failure. Review of Systems: 14-point review of systems negative unless otherwise noted above. Past Medical History: CAD, dyslipidemia, hypertension, and diabetes mellitus Past Surgical History: PTCA Medications: Reviewed. Allergies: No known drug allergies. Family History: No family history of premature CAD. No family history of lung disorders. Social History: Nonsmoker. No alcohol or illicit drug use. Allergies: Coded Allergies: NO KNOWN ALLERGIES (Unverified , 07/27/24) Current Medications Current Medications Medications (Trade) Dose Ordered Sig/Joe Route PRN Reason Start Time Stop Time Status Last Admin Ceftriaxone Sodium 50 ml @ 100 mls/hr DAILY@09 IV 07/30/24 09:00 07/30/24 10:56 DC 07/30/24 08:01 Doxycycline Hyclate 100 ml @ 50 mls/hr Q12H IV 07/30/24 06:00 07/30/24 10:10 DC 07/30/24 06:11 Daptomycin 650 mg/ Sodium Chloride 50 ml @ 100 mls/hr DAILY IV 07/31/24 10:00 Heparin Sodium/ Dextrose 250 ml @ 9 mls/hr Q24H IV 07/30/24 10:45 07/30/24 10:45 Ceftriaxone Sodium/Dextrose 50 ml @ 50 mls/hr Q12HR@ IV 07/30/24 21:00 Sodium Chloride 1,000 ml @ 75 mls/hr [id number] IV 07/30/24 13:15 07/31/24 05:00 07/30/24 13:15 Vital Signs Vital Signs Date Time Temp Pulse Resp B/P (MAP) Pulse Ox O2 Delivery O2 Flow Rate FiO2 07/30/24 18:35 118/42 4/21/25 18:30 87 07/30/24 18:00 97.9 19 99 97.9 07/30/24 07:47 Nasal Cannula* 2 28 Physical Exam Gen.: Patient lying in bed in no apparent distress. On supplemental oxygen. Head: Normocephalic, atraumatic. Eyes: EOMI/PERRLA. Ears: Normal hearing. Normal anatomy. Neck/trachea: Trachea midline, supple. Nose: Normal external anatomy. Mouth: Moist mucous membranes. Chest: Decreased air entry bilaterally. No wheezing or rhonchi. Cardiovascular: Positive S1, positive S2. Regular rate and rhythm. Abdomen: Positive bowel sounds in all 4 quadrants. Soft, non-tender, non- distended. : Deferred. Rectal: Deferred. Skin: Warm, dry. Intact. Extremities: 2+ radial pulses bilaterally. No lower extremity edema. Neuro: Awake, alert, oriented x3. No gross motor or sensory deficits. Cranial nerves II through XII intact. Gait not assessed. Labs/Diagnostic Data Labs Test 07/30/24 18:42 07/30/24 03:20 07/29/24 21:06 07/29/24 12:20 Range/Units White Blood Count 8.7 4.4-10.8 10^3/uL Red Blood Count 2.89 L 4.5-5.90 10^6/uL Hemoglobin 8.8 L 13.5-17.5 g/dL Hematocrit 25.5 #L 41.0-53.0 % Mean Corpuscular Volume 88.3 80.0-100.0 fL Mean Corpuscular Hemoglobin 30.6 28.0-32.0 pg Mean Corpuscular Hemoglobin Concent 34.6 32.0-36.0 g/dL Red Cell Distribution Width 16.6 H 11.8-14.3 % Platelet Count 70 L 140-450 10^3/uL Mean Platelet Volume 8.2 6.9-10.8 fL Neutrophils (%) (Auto) 83.0 H 37.0-80.0 % Lymphocytes (%) (Auto) 7.7 L 10.0-50.0 % Monocytes (%) (Auto) 8.3 0.0-12.0 % Eosinophils (%) (Auto) 0.7 0.0-7.0 % Basophils (%) (Auto) 0.3 0.0-2.0 % Neutrophils # (Auto) 7.2 1.6-8.6 10 ^3/uL Lymphocytes # (Auto) 0.7 0.4-5.4 10 ^3/uL Monocytes # (Auto) 0.7 0-1.3 10 ^3/uL Eosinophils # (Auto) 0.1 0-0.8 10 ^3/uL Basophils # (Auto) 0 0-0.2 10 ^3/uL Nucleated Red Blood Cells 0.1 % Sodium Level 131 L 136-145 mmol/L Potassium Level 4.4 3.5-5.1 mmol/L Chloride Level 102 98-107 mmol/L Carbon Dioxide Level 19 L 20-31 mmol/L Anion Gap 10 5-15 Blood Urea Nitrogen 40 H 9-23 mg/dL Creatinine 2.11 H 0.700-1.30 mg/dL Glomerular Filtration Rate Calc 34 >90 mL/min BUN/Creatinine Ratio 19.0 10.0-20.0 Serum Glucose 149 H 74-106 mg/dL Calcium Level 8.3 L 8.7-10.4 mg/dL Total Bilirubin 0.4 0.2-1.0 mg/dL Aspartate Amino Transferase (AST) 27 13-40 U/L Alanine Aminotransferase (ALT) < 9 7-40 U/L Alkaline Phosphatase 68 46-116 U/L B-Type Natriuretic Peptide 1197.89 0-100 pg/mL Total Protein 5.6 L 5.7-8.2 g/dL Albumin 2.6 L 3.2-4.8 g/dL Urine Osmolality 380 mOsm/kg Troponin I High Sensitivity 4000 *H </=54 ng/L Test 07/29/24 05:36 07/28/24 08:45 07/28/24 04:21 07/27/24 23:10 Range/Units Uric Acid 9.6 H 3.7-9.2 mg/dL Phosphorus Level 4.6 2.4-5.1 mg/dL Vitamin D 25-Hydroxy 31.2 30.0-100 ng/mL Thyroid Stimulating Hormone (TSH) 1.03 0.55-4.78 uIU/mL Urine Color Yellow Yellow Urine Clarity Hazy H Clear Urine pH 5.5 5.0-9.0 Urine Specific [place] 1.013 1.001-1.035 Urine Protein 1+ H Negative Urine Ketones Negative Negative Urine Blood Negative Negative /uL Urine Nitrite Negative Negative Urine Bilirubin Negative Negative Urine Urobilinogen Normal Negative mg/dL Urine Leukocyte Esterase Negative Negative /uL Urine RBC 3 0 - 3 /hpf Urine Microscopic WBC 7 H 0-3 /HPF Urine Squamous Epithelial Cells Few <5 /hpf Urine Bacteria Few H None Seen /hpf Urine Creatinine 112.81 30.0-125.0 mg/dL Urine Sodium 23 L 40-220 mmol/L Urine Glucose Normal Normal mg/dL Urine Total Protein 71.7 H 1-14 mg/dL Magnesium Level 2.3 1.6-2.6 mg/dL Triglycerides Level 183 H < 150 mg/dL Cholesterol Level 100 < 200 mg/dL LDL Cholesterol 52 < 100 mg/dL HDL Cholesterol 9 L 40-59 mg/dL Microbiology Date/Time Source Procedure Growth Status 07/29/24 16:45 Blood Blood Culture - Preliminary Resulted Assessment Impression: Acute hypoxic respiratory failure Dependence on supplemental oxygen Chest pain, rule out ACS NSTEMI, ruled out type 1, type 2 from AR Acute exacerbation of CHF CAD s/p angiogram, patent stents RACHEL on possible CKD 4 Diabetes type 2 Plan: Supplemental oxygen 2 LPM NC Titrate to keep O2 sats above 92%. Taper O2 as tolerated. Heparin drip Status post left heart catheterization, findings of pericarditis Plan for HLOC for aortic valve replacement + endocarditis Cardiology recommendations appreciated Continue antibiotics Positive blood cultures ID recommendations appreciated IV fluids w/ NS at 75 ml/hr Diurese with Lasix as tolerated Monitor renal function. Monitor electrolytes. Supplement as necessary. Monitor ins and outs. DVT prophylaxis. Prognosis: Poor given patient's multiple co-morbidities. Condition: Critical Rest of plan per hospitalist and other consultants. A total of 35 minutes of critical care time was spent reviewing the patient record, examining the patient, making a diagnostic and therapeutic plan, discussing this plan with the medical personnel, following up on diagnostic studies and following the patient for clinical stability excluding any and all procedures. At least 50% of this time was spent in direct, [id number] contact. Thank you, Dr. Robert, for allowing me to participate in this patient's care. Further recommendations will depend on the patient's clinical course. Please do not hesitate to contact me if you have any questions or concerns. This medical document was created using an electronic medical record system with Dragon computerized dictation system. Although these documentations are being carefully reviewed, there may still be some phonetic and typographical changes. The errors are purely typographical, due to imperfection on the software program, and do not reflect any compromise in the patient's medical care. Plan discussed with: Patient, Other (MAHIN Mcclure/Dr. Robert) YOCASTA WONG MD Jul 30, 2024 20:24
[2024-07-30] MEDS: cefTRIAXone 2GM/50ML D5W 50 ML IV SCH (20:43)
--- NOTE | 2024-07-30 23:16 | DVHPN2 ---
Progress Note - Dictate Date Seen: Jul 30, 2024 Medical Necessity Reason Pt with a Central, PICC or Fol: No Subjective Patient was seen and evaluated in follow up in the ICU. Patient is on 3 LPM NC. Patient is s/p cath. No severe CAD. Patent CX stents. Patient appears unaware of his stents.LVEDP >42 mmhg. Patient needs afterload reduction. He needs urgent transfer for AVR eval and HF management. HGB 8.8, HCT 25.5, BUN 40, [employer] Other Ranks 2.11. vital signs Vital Sign Date Time Temp Pulse Resp B/P (MAP) Pulse Ox O2 Delivery O2 Flow Rate FiO2 07/30/24 22:00 78 07/30/24 20:01 98.4 21 103/44 (63) 98 98.4 07/30/24 20:00 Nasal Cannula* 3 32 Total Intake and Output 07/29/24 07/29/24 07/30/24 15:00 23:00 07:00 Intake Total 568 ml 1894.5 ml 1128.5 ml Output Total 300 ml 1050 ml Balance 568 ml 1594.5 ml 78.5 ml medications Current Medications Medications Dose Ordered Sig/Joe Route Start Time Stop Time Status Last Admin Dose Admin Ondansetron HCl 4 mg Q4HP PRN IV 07/27/24 23:15 07/28/24 00:09 4 MG Nitroglycerin 0.4 mg Q5MINP PRN SL 07/27/24 23:15 07/29/24 10:19 0.4 MG Morphine Sulfate 2 mg Q30M PRN IV 07/27/24 23:15 07/30/24 08:31 2 MG Aspirin 81 mg DAILY PO 07/29/24 10:00 07/30/24 08:01 81 MG Atorvastatin Calcium 40 mg HS PO 07/28/24 22:00 07/30/24 20:43 40 MG Furosemide 20 mg DAILY IV 07/29/24 10:00 07/30/24 08:01 20 MG Metoprolol Succinate 50 mg DAILY PO 07/29/24 10:00 07/30/24 09:06 50 MG Nitroglycerin 250 ml @ 1.5 mls/hr Q24H IV 07/29/24 11:15 07/30/24 07:30 22.5 MLS/HR Daptomycin 650 mg/ Sodium Chloride 50 ml @ 100 mls/hr DAILY IV 07/31/24 10:00 Ceftriaxone Sodium/Dextrose 50 ml @ 50 mls/hr Q12HR@09,21 IV 07/30/24 21:00 07/30/24 20:43 50 MLS/HR Sodium Chloride 1,000 ml @ 75 mls/hr [id number] IV 07/30/24 13:15 07/31/24 05:00 07/30/24 13:15 75 MLS/HR Heparin Sodium/ Dextrose 250 ml @ 6 mls/hr Q24H IV 07/30/24 21:00 objective GENERAL: Alert and oriented x 3. No acute distress. EYES: PERRL, EOMI. Anicteric. HENT: Moist mucous membranes. LUNGS: Clear to auscultation bilaterally. CARDIOVASCULAR: Regular rate and rhythm. ABDOMEN: Soft, non-tender and non-distended. EXTREMITIES: No edema. NEUROLOGIC: No focal neurological deficits. SKIN: Warm, dry. laboratory and microbiology Laboratory Tests 07/30/24 03:20 Test 07/30/24 03:20 Range/Units Serum Glucose 149 H 74-106 mg/dL Problem List NSTEMI. RACHEL on possible CKD 4. Hypertension. Dyslipidemia. Diabetes type 2. Assessment/Plan Continued all current supportive medical care. Echocardiogram reveals EF 55%. Aspirin, Lipitor, Metoprolol. IV antibiotics as ordered. Diuretics with Lasix. Heparin drip per pharmacy. Additional plan as per the hospital course. Critical care time of 45 minutes provided to include time spent evaluation of patient at bedside, when appropriate patient/family education for diagnosis, treatment plan, review of pertinent medical information and discussion of care with specialty providers and PCP. Dietary Evaluation Review Comments: 1.To avoid uremic synptoms, recommend a Renal specific diet with 60g protein restriction. 2. Reassess protein needs after a updated nephrology consult. Expected Outcomes/Goals: maintain wt, minimised nephrotic syndroms Plan discussed with: Patient PETRONA WONG MD Jul 30, 2024 23:16
--- NOTE | 2024-07-30 23:38 | DVHPN2 ---
Consult Progress Note Date Seen: Jul 30, 2024 Subjective Patient reports: Other (Patient is off nitroglycerin drip but remains on heparin drip , no longer having chest pain , S/P left heart cath ) Objective vital signs Vital Sign Date Time Temp Pulse Resp B/P (MAP) Pulse Ox O2 Delivery O2 Flow Rate FiO2 07/30/24 22:00 78 07/30/24 20:01 98.4 21 103/44 (63) 98 98.4 07/30/24 20:00 Nasal Cannula* 3 32 Total Intake and Output 07/29/24 07/29/24 07/30/24 15:00 23:00 07:00 Intake Total 568 ml 1894.5 ml 1128.5 ml Output Total 300 ml 1050 ml Balance 568 ml 1594.5 ml 78.5 ml medications Current Medications Medications Dose Ordered Sig/Joe Route Start Time Stop Time Status Last Admin Dose Admin Ondansetron HCl 4 mg Q4HP PRN IV 07/27/24 23:15 07/28/24 00:09 4 MG Nitroglycerin 0.4 mg Q5MINP PRN SL 07/27/24 23:15 07/29/24 10:19 0.4 MG Morphine Sulfate 2 mg Q30M PRN IV 07/27/24 23:15 07/30/24 08:31 2 MG Aspirin 81 mg DAILY PO 07/29/24 10:00 07/30/24 08:01 81 MG Atorvastatin Calcium 40 mg HS PO 07/28/24 22:00 07/30/24 20:43 40 MG Furosemide 20 mg DAILY IV 07/29/24 10:00 07/30/24 08:01 20 MG Metoprolol Succinate 50 mg DAILY PO 07/29/24 10:00 07/30/24 09:06 50 MG Nitroglycerin 250 ml @ 1.5 mls/hr Q24H IV 07/29/24 11:15 07/30/24 07:30 22.5 MLS/HR Daptomycin 650 mg/ Sodium Chloride 50 ml @ 100 mls/hr DAILY IV 07/31/24 10:00 Ceftriaxone Sodium/Dextrose 50 ml @ 50 mls/hr Q12HR@,21 IV 07/30/24 21:00 07/30/24 20:43 50 MLS/HR Sodium Chloride 1,000 ml @ 75 mls/hr [id number] IV 07/30/24 13:15 07/31/24 05:00 07/30/24 13:15 75 MLS/HR Heparin Sodium/ Dextrose 250 ml @ 6 mls/hr Q24H IV 07/30/24 21:00 laboratory and microbiology Laboratory Tests 07/30/24 03:20 Test 07/30/24 03:20 Range/Units Serum Glucose 149 H 74-106 mg/dL Problem List/Assessment/Plan Problems(with codes): (1) Acute chest pain (2) NSTEMI (non-ST elevated myocardial infarction) (3) Bacteremia (4) Murmur (5) Prolonged QT interval (6) Acute exacerbation of chronic heart failure Problem List/Assessment/Plan ASSESSMENT AND PLAN: ID Problem List: - Chest pain with elevated troponin (up to 4000) - Hypertension - Diabetes mellitus - Dyslipidemia - Acute kidney injury (creatinine up to 2.71) - Thrombocytopenia (platelet count 65) - Bacteremia (Gram positive cocci in chains in blood cultures) - Possible endocarditis - Heart failure/volume overload (BNP up to 1197, moderate RV and LV dilation) - Calcified aortic valve - History of percutaneous coronary intervention - Chronic atelectasis (right lung base) Assessment: This is a 64-year-old male with a history of diabetes mellitus, dyslipidemia, hypertension, and prior percutaneous coronary intervention, admitted with intermittent, substernal chest pain (pressure, 6/10 severity). On arrival, the patient was in mild distress with ongoing chest pain. Initial evaluation demonstrated elevated troponins (up to 4000), BNP as high as 1197, and RACHEL (creatinine peaked at 2.71). Platelet count was 65. Blood cultures grew Gram positive cocci in chains in 2 out of 4 bottles on different sets. EKG revealed repolarization abnormalities (ischemia in diffuse leads), prolonged UT interval, baseline wander in V3, and borderline ST depression in lateral leads. TTE showed slightly dilated left ventricle, moderately dilated right ventricle, moderately calcified aortic leaflets (aortic valve area 2.9 cm), and increased peak gradient across the aortic valve. CXR shows chronic atelectasis of the right base. Renal ultrasound was normal. Due to rising troponins and persistent symptoms, the patient was transferred to the ICU for close monitoring and started on heparin and nitroglycerin drips. Cardiology consultation recommended left heart catheterization once renal function improves. Infectious evaluation is ongoing due to bacteremia and possible endocarditis (suggested by bacteremia, calcified valve, abnormal EKG, and UT interval changes). 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 distal RCA 70% stenosis , mid LAD has a sequentail 50% stenosis with diffuse distal disease of 50-60% . elevated LVEDP of 49 mg of mercury int eh setting ther is ongoing concern of probable acute aortic insufficiency and possible vegetation Plan: - Continue heparin and nitroglycerin drips per ICU/cardiology protocols - start daptomycin, continue Ceftriaxone - Discontinue doxycycline (not indicated) - Repeat blood cultures in 24 hours - CHRISTOPHER planned for evaluation of possible endocarditis - Monitor for hypoxia/worsening respiratory status; consider chest CT if suspicion for septic emboli arises - Follow up on blood culture sensitivities and speciation (Gram positive cocci, chains) - Infectious disease and cardiology to follow - Continue supportive care; manage blood pressure, blood glucose, and volume status per standard protocols - Dose daptomycin every other day, initiate at 8 mg/kg, adjust per renal function and lab values Assessment and plan was discussed with the patient as written above. Authorized and Performed by: Dariel Nuñez Total critical care time: Approximately 76 minutes Due to a high probability of clinically significant, life threatening deterioration, the patient required my highest level of preparedness to intervene emergently and I personally spent this critical care time directly and personally managing the patient. This critical care time included obtaining a history; examining the patient; pulse oximetry; ordering and review of studies; arranging urgent treatment with development of a management plan; evaluation of patient's response to treatment; frequent reassessment; and, discussions with other providers. This critical care time was performed to assess and manage the high probability of imminent, life-threatening deterioration that could result in multi-organ failure. It was exclusive of separately billable procedures and treating other patients and teaching time. Plan discussed with: Other Dietary Evaluation Review Comments: 1.To avoid uremic synptoms, recommend a Renal specific diet with 60g protein restriction. 2. Reassess protein needs after a updated nephrology consult. Expected Outcomes/Goals: maintain wt, minimised nephrotic syndroms DARIEL NUÑEZ MD Jul 30, 2024 23:38
[2024-07-31] VITALS (42 sets, daily range): BP systolic 90–132; BP diastolic 29–46; PULSE 69–90; RESP 12–24; TEMP 98.1–98.7; O2SAT 92–100
[2024-07-31] MEDS: HEPARIN DRIP/D5W 100UNITS/ML 250 ML IV SCH ×2 (03:20→05:51)
[2024-07-31 04:20] LABS: Basophils # (auto) 0 10 ^3/uL (0-0.2); Basophils % (auto) 0.2 % (0.0-2.0); Eosinophils # (auto) 0.1 10 ^3/uL (0-0.8); Eosinophils % (auto) 1.4 % (0.0-7.0); Hematocrit 30.6 % (41.0-53.0); Hemoglobin 10.3 g/dL (13.5-17.5); Lymphocytes # (auto) 1.1 10 ^3/uL (0.4-5.4); Lymphocytes % (auto) 11.2 % (10.0-50.0); Mean Corpuscular Hemoglobin 29.8 pg (28.0-32.0); Mean Corpuscular Hgb Conc. 33.7 g/dL (32.0-36.0); Mean Corpuscular Volume 88.3 fL (80.0-100.0); Monocytes # (auto) 0.8 10 ^3/uL (0-1.3); Monocytes % (auto) 8.9 % (0.0-12.0); Neutrophils # (auto) 7.4 10 ^3/uL (1.6-8.6); Neutrophils % (auto) 78.3 % (37.0-80.0); Platelet Count (auto) 69 10^3/uL (140-450); Red Blood Cells 3.46 10^6/uL (4.5-5.90); Red Cell Distribution Width 16.9 % (11.8-14.3); White Blood Cell 9.5 10^3/uL (4.4-10.8)
[2024-07-31 04:38] LABS: Calcium 8.9 mg/dL (8.7-10.4); Chloride 102 mmol/L (98-107); Potassium 4.1 mmol/L (3.5-5.1)
[2024-07-31 04:39] LABS: Anion Gap 9 (5-15); Carbon Dioxide 21 mmol/L (20-31)
[2024-07-31 04:41] LABS: Sodium 132 mmol/L (136-145)
[2024-07-31 04:44] LABS: Blood Urea Nitrogen 34 mg/dL (9-23); Glucose 87 mg/dL (74-106)
--- NOTE | 2024-07-31 11:53 | DVH ---
INDICATION: BL LL rales, assess possible effusions TECHNIQUE: Frontal view of the chest. COMPARISON: XY CHEST PORTABLE on DOS: 07/27/24 FINDINGS: Small left pleural effusion. The heart and mediastinal contours are grossly unremarkable. . The lung s are clear. The bony structures of the chest are intact without fracture. IMPRESSION: 1. Small left pleural effusion
[2024-07-31 12:34] LABS: INR 1.16 (0.9-1.15); Partial Thromboplastin Time 49.9 SEC (24.5-34.5); Prothrombin Time 12.1 sec (9.3-11.8)
--- NOTE | 2024-07-31 12:36 | DVHPN2 ---
Progress Note Date Seen: Jul 31, 2024 Medical Necessity Reason Pt with a Central, PICC or Fol: No Subjective Patient reports: Feels better Objective vital signs Vital Sign Date Time Temp Pulse Resp B/P (MAP) Pulse Ox O2 Delivery O2 Flow Rate FiO2 07/31/24 11:15 77 16 104/30 (54) 98 07/31/24 08:00 Nasal Cannula* 3 32 07/31/24 08:00 98.5 98.5 Total Intake and Output 07/30/24 07/30/24 07/31/24 15:00 23:00 07:00 Intake Total 630.5 ml 467 ml 600 ml Output Total 800 ml 1850 ml Balance 630.5 ml -333 ml -1250 ml medications Current Medications Medications Dose Ordered Sig/Joe Route Start Time Stop Time Status Last Admin Dose Admin Ondansetron HCl 4 mg Q4HP PRN IV 07/27/24 23:15 07/28/24 00:09 4 MG Nitroglycerin 0.4 mg Q5MINP PRN SL 07/27/24 23:15 07/29/24 10:19 0.4 MG Morphine Sulfate 2 mg Q30M PRN IV 07/27/24 23:15 07/30/24 08:31 2 MG Aspirin 81 mg DAILY PO 07/29/24 10:00 07/31/24 09:58 81 MG Atorvastatin Calcium 40 mg HS PO 07/28/24 22:00 07/30/24 20:43 40 MG Furosemide 20 mg DAILY IV 07/29/24 10:00 07/31/24 09:57 20 MG Metoprolol Succinate 50 mg DAILY PO 07/29/24 10:00 07/31/24 09:58 50 MG Nitroglycerin 250 ml @ 1.5 mls/hr Q24H IV 07/29/24 11:15 07/30/24 07:30 22.5 MLS/HR Daptomycin 650 mg/ Sodium Chloride 50 ml @ 100 mls/hr DAILY IV 07/31/24 10:00 Ceftriaxone Sodium/Dextrose 50 ml @ 50 mls/hr Q12HR@ IV 07/30/24 21:00 07/31/24 09:57 50 MLS/HR Heparin Sodium/ Dextrose 250 ml @ 8 mls/hr Q24H IV 07/31/24 05:30 07/31/24 05:51 8 MLS/HR Examination: GENERAL:Normal laboratory and microbiology Laboratory Tests 07/31/24 03:23 Test 07/31/24 03:23 Range/Units Serum Glucose 87 74-106 mg/dL Microbiology Date/Time Source Procedure Growth Status 07/29/24 16:45 Blood Blood Culture - Preliminary Resulted Problem List/Assessment/Plan Problem List/Assessment/Plan RACHEL hemodynamically mediated- possible CRS baseline serum creat unknown, unknown hx of CKD NSTEMI chest pain s/p LHC severe AV disease Avoid hypotension , rec MAP 65 Avoid high blood pressure Patient will receive afterload reduction if BP stable in creatinine stable still has very low BP. Rest of care as per Cardiology and primary medical team Monitor urinary output Plan discussed with: Patient Dietary Evaluation Review Comments: 1.To avoid uremic synptoms, recommend a Renal specific diet with 60g protein restriction. 2. Reassess protein needs after a updated nephrology consult. Expected Outcomes/Goals: maintain wt, minimised nephrotic syndroms ARGENIS DAVIS MD Jul 31, 2024 12:36
[2024-07-31] MEDS: SODIUM CHL 0.9% IV SCH (12:43)
[2024-07-31] MEDS: DAPTOMYCIN IV SCH (12:43)
--- NOTE | 2024-07-31 12:45 | DVHPN2 ---
Subjective 64-year-old male presents in ED via EMS with a chief complaint of chest pain. The patient reports chest pressure pain nonradiating, non provoked for the past 15 days. In the emergency department, the patient underwent a 12 lead ECG showing normal sinus rhythm with prolonged OH interval and right BBB, serial troponin up trending with a recent results in . The patient is currently receiving heparin drip and aspirin. Currently denies chest pain, diaphoresis, shortness of breath or difficulty in breathing. The patient reports that he had recent angiogram in April 2024 with clean coronaries. The patient states that he is under a Cardiology from [place] and supposed to have a follow-up office visit this coming August 06, 2024. The patient is alert and oriented but somehow poor historian, the son was contacted to verify cardiac history who states that the patient was supposed to take blood thinners but for some reason had stopped. Significant past medical history of hypertension, hyperlipidemia, diabetes, and possible noncompliance. Reviewed: H&P Changes from previous H/P or p: No Changes General: Per HPI Objective Vitals Vital Signs Date Time Temp Pulse Resp B/P (MAP) Pulse Ox O2 Delivery O2 Flow Rate FiO2 07/31/24 11:15 77 16 104/30 (54) 98 07/31/24 08:00 Nasal Cannula* 3 32 07/31/24 08:00 98.5 98.5 Intake/Output Intake and Output 07/31/24 07:00 Intake Total 1697.5 ml Output Total 2650 ml Balance -952.5 ml Intake Oral 300 ml IV Total 1397.5 ml Output Urine Total 2650 ml Exam GENERAL: Alert and interactive. No acute distress. HEAD: Head is normocephalic and atraumatic. EYES: EOMI, PERRL. No scleral icterus. No conjunctival injection. ENT: Moist mucous membranes. NECK: Supple, No masses, Full range of motion. RESPIRATORY: No tachypnea. Clear breath sounds bilaterally. No wheezing, rales, rhonchi. CV: Regular rate and rhythm. No shortness of breath, no dyspnea GI/: Active bowel sounds, soft, nondistended, nontender. No guarding. No rebound. No masses. No CVA tenderness. INTEGUMENTARY: Warm and dry. No obvious rashes. NEUROLOGIC: Alert and oriented. Face is symmetric. Speech is normal. Moves all extremities equally. General Appearance: Alert, Oriented X3, No acute distress Lungs: Clear to auscultation Cardiovascular: Regular rate, Normal S1, Normal S2 Medications Current Medications Medications Dose Ordered Sig/Joe Route Start Time Stop Time Status Last Admin Dose Admin Ondansetron HCl 4 mg Q4HP PRN IV 07/27/24 23:15 07/28/24 00:09 4 MG Nitroglycerin 0.4 mg Q5MINP PRN SL 07/27/24 23:15 07/29/24 10:19 0.4 MG Morphine Sulfate 2 mg Q30M PRN IV 07/27/24 23:15 07/30/24 08:31 2 MG Aspirin 81 mg DAILY PO 07/29/24 10:00 07/31/24 09:58 81 MG Atorvastatin Calcium 40 mg HS PO 07/28/24 22:00 07/30/24 20:43 40 MG Furosemide 20 mg DAILY IV 07/29/24 10:00 07/31/24 09:57 20 MG Metoprolol Succinate 50 mg DAILY PO 07/29/24 10:00 07/31/24 09:58 50 MG Nitroglycerin 250 ml @ 1.5 mls/hr Q24H IV 07/29/24 11:15 07/30/24 07:30 22.5 MLS/HR Daptomycin 650 mg/ Sodium Chloride 50 ml @ 100 mls/hr DAILY IV 07/31/24 10:00 Ceftriaxone Sodium/Dextrose 50 ml @ 50 mls/hr Q12HR@,21 IV 07/30/24 21:00 07/31/24 09:57 50 MLS/HR Heparin Sodium/ Dextrose 250 ml @ 8 mls/hr Q24H IV 07/31/24 05:30 07/31/24 05:51 8 MLS/HR Laboratory Results Laboratory Tests 07/31/24 03:23 Chemistry Test 07/31/24 03:23 Calcium Level 8.9 mg/dL (8.7-10.4) Coagulation Test 07/30/24 18:42 07/31/24 03:23 07/31/24 11:24 Prothrombin Time 12.2 sec (9.3-11.8) H 12.1 sec (9.3-11.8) H Prothrombin Time INR 1.17 (0.9-1.15) H 1.16 (0.9-1.15) H Activated Partial Thromboplast Time > 139.0 SEC (24.5-34.5) *H 43.6 SEC (24.5-34.5) H 49.9 SEC (24.5-34.5) H Urinalysis Test 07/28/24 08:45 07/29/24 21:06 Urine Color Yellow (Yellow) Urine Clarity Hazy (Clear) H Urine pH 5.5 (5.0-9.0) Urine Specific [place]son 1.013 (1.001-1.035) Urine Protein 1+ (Negative) H Urine Ketones Negative (Negative) Urine Blood Negative /uL (Negative) Urine Nitrite Negative (Negative) Urine Bilirubin Negative (Negative) Urine Urobilinogen Normal mg/dL (Negative) Urine Leukocyte Esterase Negative /uL (Negative) Urine RBC 3 /hpf (0 - 3) Urine Microscopic WBC 7 /HPF (0-3) H Urine Squamous Epithelial Cells Few /hpf (<5) Urine Bacteria Few /hpf (None Seen) H Urine Creatinine 112.81 mg/dL (30.0-125.0) Urine Sodium 23 mmol/L (40-220) L Urine Glucose Normal mg/dL (Normal) Urine Total Protein 71.7 mg/dL (1-14) H Urine Osmolality 380 mOsm/kg Microbiology Microbiology Date/Time Source Procedure Growth Status 07/29/24 16:45 Blood Blood Culture - Preliminary Resulted Labs and/or images reviewed: Labs reviewed by me, Image(s) reviewed by me Assessment/Plan Assessment/Plan Update 07/29 07/28 patient presenting with chest pain. EKG abnormal likely old findings but troponin elevated but is downtrending. Angiogram April 2024 was clean. Patient will need to evaluate by Cardiology again. Patient is either altered or has dementia as he does not know his complete history or his meds. Likely poor medication compliance. No family for collateral. Patient also has CKD and thrombocytopenia, significant BNP. Patient was anticoagulated aspirin and heparin drip with plan for near future left heart catheterization but pending and holding off due to CKD. LFT pattern suggests possible alcohol history. 07/29 this a.m. and overnight patient continues to have chest pain substernal pressure-like. Patient appears to have some level of dementia as he is not completely aware of his situation or his medical history. During these chest pain episodes patient is grabbing his chest the appears to be severe. Multiple nitroglycerin was given and EKGs. EKGs remain to show no changes and are unchanged from admit. Cardiology is aware. We will have to escalate patient to D OU and start nitroglycerin drip. If patient continues to have chest pain while on nitroglycerin drip he will need stat lab scientist whether or not Nephrology clears. 07/30 - status post left heart catheterization, patient has stents which she did not know of which are patent. Significantly elevated LVEDP likely from aortic regurgitation. Per recommendations of Cardiology after left heart catheterization patient needs eval for AVR and is also possible vegetation needing evaluation. High-risk patient, risk for BIBIANA nephrology on board, needs to stay in D OU status for close monitoring and on nitroglycerin drip . Appreciate recs from Cardiology/Nephrology. Social consulted for need for [facility] for AVR/vegetation eval. 07/31 - continue with transfer for eval her AVR. Stable otherwise, vitals stable, some lower lobes rales bilaterally today we will get CXR. Appreciate following by Cardiology and Nephrology. renal function improving Problem list: Severe AR Aortic vegetation possible NSTEMI , ruled out type 1, type 2 from AR Status post angiogram, patent stents per [facility] 07/30 Ruled out ACS structural heart disease is concerning as above. 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 Nephrology consult card diet ok Heparin drip protonix [place] full code Plan discussed with: Patient My Orders Orders - STEVE MELÉNDEZ MD Procedure Category Date Status Time Communication Order ORDERS 07/30/24 Transmitted 13:31 * [employer] CONS 07/30/24 Transmitted Consult Blood Culture JEROME 07/31/24 In Process 09:28 Chest Portable XY 07/31/24 Resulted 10:06 Transfer Orders XFER 07/31/24 Transmitted 10:47 Date of Service: Jul 31, 2024 Billing Provider: STEVE MELÉNDEZ MD Common Visit Codes: 59114-DALLOJMM CARE 30-74 MIN STEVE MELÉNDEZ MD Jul 31, 2024 12:45
--- NOTE | 2024-07-31 14:45 | DVHPN2 ---
Subjective 64-year-old male presents in ED via EMS with a chief complaint of chest pain. The patient reports chest pressure pain nonradiating, non provoked for the past 15 days. In the emergency department, the patient underwent a 12 lead ECG showing normal sinus rhythm with prolonged NM interval and right BBB, serial troponin up trending with a recent results in . The patient is currently receiving heparin drip and aspirin. Currently denies chest pain, diaphoresis, shortness of breath or difficulty in breathing. The patient reports that he had recent angiogram in April 2024 with clean coronaries. The patient states that he is under a Cardiology from [place] and supposed to have a follow-up office visit this coming August 06, 2024. The patient is alert and oriented but somehow poor historian, the son was contacted to verify cardiac history who states that the patient was supposed to take blood thinners but for some reason had stopped. Significant past medical history of hypertension, hyperlipidemia, diabetes, and possible noncompliance. Reviewed: H&P Changes from previous H/P or p: No Changes General: Per HPI Objective Vitals Vital Signs Date Time Temp Pulse Resp B/P (MAP) Pulse Ox O2 Delivery O2 Flow Rate FiO2 07/31/24 14:15 72 17 99/33 (55) 98 07/31/24 12:00 98.3 98.3 07/31/24 08:00 Nasal Cannula* 3 32 Intake/Output Intake and Output 07/31/24 07:00 Intake Total 1705.5 ml Output Total 2650 ml Balance -944.5 ml Intake Oral 300 ml IV Total 1405.5 ml Output Urine Total 2650 ml Exam GENERAL: Alert and interactive. No acute distress. HEAD: Head is normocephalic and atraumatic. EYES: EOMI, PERRL. No scleral icterus. No conjunctival injection. ENT: Moist mucous membranes. NECK: Supple, No masses, Full range of motion. RESPIRATORY: No tachypnea. Clear breath sounds bilaterally. No wheezing, rales, rhonchi. CV: Regular rate and rhythm. No shortness of breath, no dyspnea GI/: Active bowel sounds, soft, nondistended, nontender. No guarding. No rebound. No masses. No CVA tenderness. INTEGUMENTARY: Warm and dry. No obvious rashes. NEUROLOGIC: Alert and oriented. Face is symmetric. Speech is normal. Moves all extremities equally. General Appearance: Alert, Oriented X3, No acute distress Lungs: Clear to auscultation Cardiovascular: Regular rate, Normal S1, Normal S2 Medications Current Medications Medications Dose Ordered Sig/Joe Route Start Time Stop Time Status Last Admin Dose Admin Ondansetron HCl 4 mg Q4HP PRN IV 07/27/24 23:15 07/28/24 00:09 4 MG Nitroglycerin 0.4 mg Q5MINP PRN SL 07/27/24 23:15 07/29/24 10:19 0.4 MG Morphine Sulfate 2 mg Q30M PRN IV 07/27/24 23:15 07/30/24 08:31 2 MG Aspirin 81 mg DAILY PO 07/29/24 10:00 07/31/24 09:58 81 MG Atorvastatin Calcium 40 mg HS PO 07/28/24 22:00 07/30/24 20:43 40 MG Furosemide 20 mg DAILY IV 07/29/24 10:00 07/31/24 09:57 20 MG Metoprolol Succinate 50 mg DAILY PO 07/29/24 10:00 07/31/24 09:58 50 MG Nitroglycerin 250 ml @ 1.5 mls/hr Q24H IV 07/29/24 11:15 07/30/24 07:30 22.5 MLS/HR Daptomycin 650 mg/ Sodium Chloride 50 ml @ 100 mls/hr DAILY IV 07/31/24 10:00 07/31/24 12:43 100 MLS/HR Ceftriaxone Sodium/Dextrose 50 ml @ 50 mls/hr Q12HR@ IV 07/30/24 21:00 07/31/24 09:57 50 MLS/HR Heparin Sodium/ Dextrose 250 ml @ 8 mls/hr Q24H IV 07/31/24 05:30 07/31/24 05:51 8 MLS/HR Laboratory Results Laboratory Tests 07/31/24 03:23 Chemistry Test 07/31/24 03:23 Calcium Level 8.9 mg/dL (8.7-10.4) Coagulation Test 07/30/24 18:42 07/31/24 03:23 07/31/24 11:24 Prothrombin Time 12.2 sec (9.3-11.8) H 12.1 sec (9.3-11.8) H Prothrombin Time INR 1.17 (0.9-1.15) H 1.16 (0.9-1.15) H Activated Partial Thromboplast Time > 139.0 SEC (24.5-34.5) *H 43.6 SEC (24.5-34.5) H 49.9 SEC (24.5-34.5) H Urinalysis Test 07/28/24 08:45 07/29/24 21:06 Urine Color Yellow (Yellow) Urine Clarity Hazy (Clear) H Urine pH 5.5 (5.0-9.0) Urine Specific [place] 1.013 (1.001-1.035) Urine Protein 1+ (Negative) H Urine Ketones Negative (Negative) Urine Blood Negative /uL (Negative) Urine Nitrite Negative (Negative) Urine Bilirubin Negative (Negative) Urine Urobilinogen Normal mg/dL (Negative) Urine Leukocyte Esterase Negative /uL (Negative) Urine RBC 3 /hpf (0 - 3) Urine Microscopic WBC 7 /HPF (0-3) H Urine Squamous Epithelial Cells Few /hpf (<5) Urine Bacteria Few /hpf (None Seen) H Urine Creatinine 112.81 mg/dL (30.0-125.0) Urine Sodium 23 mmol/L (40-220) L Urine Glucose Normal mg/dL (Normal) Urine Total Protein 71.7 mg/dL (1-14) H Urine Osmolality 380 mOsm/kg Microbiology Microbiology Date/Time Source Procedure Growth Status 07/29/24 16:45 Blood Blood Culture - Preliminary Resulted Labs and/or images reviewed: Labs reviewed by me, Image(s) reviewed by me Assessment/Plan Assessment/Plan Update 07/29 07/28 patient presenting with chest pain. EKG abnormal likely old findings but troponin elevated but is downtrending. Angiogram April 2024 was clean. Patient will need to evaluate by Cardiology again. Patient is either altered or has dementia as he does not know his complete history or his meds. Likely poor medication compliance. No family for collateral. Patient also has CKD and thrombocytopenia, significant BNP. Patient was anticoagulated aspirin and heparin drip with plan for near future left heart catheterization but pending and holding off due to CKD. LFT pattern suggests possible alcohol history. 07/29 this a.m. and overnight patient continues to have chest pain substernal pressure-like. Patient appears to have some level of dementia as he is not completely aware of his situation or his medical history. During these chest pain episodes patient is grabbing his chest the appears to be severe. Multiple nitroglycerin was given and EKGs. EKGs remain to show no changes and are unchanged from admit. Cardiology is aware. We will have to escalate patient to D OU and start nitroglycerin drip. If patient continues to have chest pain while on nitroglycerin drip he will need stat labeling strategist whether or not Nephrology clears. 07/30 - status post left heart catheterization, patient has stents which she did not know of which are patent. Significantly elevated LVEDP >42mmHglikely from aortic regurgitation. Per recommendations of Cardiology after left heart catheterization patient needs eval for AVR and is also possible vegetation needing evaluation. High-risk patient, risk for [place] nephrology on board, needs to stay in D OU status for close monitoring and on nitroglycerin drip . Appreciate recs from Cardiology/Nephrology. Social consulted for need for [facility] for AVR/vegetation eval. 07/31 - continue with transfer for eval her AVR. Stable otherwise, vitals stable, some lower lobes rales bilaterally today we will get CXR. Appreciate following by Cardiology and Nephrology. renal function improving. spoke 3pm to transfer center with [facility], unattended ground sensor specialist ruth and CTS Dr. Arsalan Delgadillo, and hospitalist dr maldonado, willing to accept and pending bed availability. Problem list: Severe AR Aortic vegetation possible NSTEMI , ruled out type 1, type 2 from AR Status post angiogram, patent stents per [facility] 07/30 Ruled out ACS structural heart disease is concerning as above. 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 (no known drug abuse history) Heparin drip -cardiology consult -transfer to [facility] for AVR eval and vegetation eval. Nephrology consult card diet ok Heparin drip protonix [place] full code Plan discussed with: Patient My Orders Orders - STEVE MELÉNDEZ MD Procedure Category Date Status Time * Breakfast And Room Attendant CONS 07/30/24 Transmitted Consult Blood Culture JEROME 07/31/24 In Process 09:28 Chest Portable XY 07/31/24 Resulted 10:06 Transfer Orders XFER 07/31/24 Transmitted 10:47 Date of Service: Jul 31, 2024 Billing Provider: STEVE MELÉNDEZ MD Common Visit Codes: [id number] INP/OBS CARE(HIGH) STEVE MELÉNDEZ MD Jul 31, 2024 14:45
--- NOTE | 2024-07-31 15:17 | DVHDS2 ---
Discharge Summary Date of Admission Jul 27, 2024 at 23:07 Date of Discharge: Jul 31, 2024 Labs/Diagnostic Data: Laboratory Results Test 07/31/24 11:24 07/31/24 03:23 07/30/24 03:20 07/29/24 21:06 Prothrombin Time 12.1 sec (9.3-11.8) Prothrombin Time INR 1.16 (0.9-1.15) Activated Partial Thromboplast Time 49.9 SEC (24.5-34.5) White Blood Count 9.5 10^3/uL (4.4-10.8) Red Blood Count 3.46 10^6/uL (4.5-5.90) Hemoglobin 10.3 g/dL (13.5-17.5) Hematocrit 30.6 % (41.0-53.0) Mean Corpuscular Volume 88.3 fL (80.0-100.0) Mean Corpuscular Hemoglobin 29.8 pg (28.0-32.0) Mean Corpuscular Hemoglobin Concent 33.7 g/dL (32.0-36.0) Red Cell Distribution Width 16.9 % (11.8-14.3) Platelet Count 69 10^3/uL (140-450) Mean Platelet Volume 8.5 fL (6.9-10.8) Neutrophils (%) (Auto) 78.3 % (37.0-80.0) Lymphocytes (%) (Auto) 11.2 % (10.0-50.0) Monocytes (%) (Auto) 8.9 % (0.0-12.0) Eosinophils (%) (Auto) 1.4 % (0.0-7.0) Basophils (%) (Auto) 0.2 % (0.0-2.0) Neutrophils # (Auto) 7.4 10 ^3/uL (1.6-8.6) Lymphocytes # (Auto) 1.1 10 ^3/uL (0.4-5.4) Monocytes # (Auto) 0.8 10 ^3/uL (0-1.3) Eosinophils # (Auto) 0.1 10 ^3/uL (0-0.8) Basophils # (Auto) 0 10 ^3/uL (0-0.2) Nucleated Red Blood Cells 0.0 % Sodium Level 132 mmol/L (136-145) Potassium Level 4.1 mmol/L (3.5-5.1) Chloride Level 102 mmol/L (98-107) Carbon Dioxide Level 21 mmol/L (20-31) Anion Gap 9 (5-15) Blood Urea Nitrogen 34 mg/dL (9-23) Creatinine 1.70 mg/dL (0.700-1.30) Glomerular Filtration Rate Calc 44 mL/min (>90) BUN/Creatinine Ratio 20.0 (10.0-20.0) Serum Glucose 87 mg/dL (74-106) Calcium Level 8.9 mg/dL (8.7-10.4) Total Bilirubin 0.4 mg/dL (0.2-1.0) Aspartate Amino Transferase (AST) 27 U/L (13-40) Alanine Aminotransferase (ALT) < 9 U/L (7-40) Alkaline Phosphatase 68 U/L (46-116) B-Type Natriuretic Peptide 1197.89 pg/mL (0-100) Total Protein 5.6 g/dL (5.7-8.2) Albumin 2.6 g/dL (3.2-4.8) Urine Osmolality 380 mOsm/kg Test 07/29/24 12:20 07/29/24 05:36 07/28/24 08:45 07/28/24 04:21 Troponin I High Sensitivity 4000 ng/L (</=54) Uric Acid 9.6 mg/dL (3.7-9.2) Phosphorus Level 4.6 mg/dL (2.4-5.1) Vitamin D 25-Hydroxy 31.2 ng/mL (30.0-100) Thyroid Stimulating Hormone (TSH) 1.03 uIU/mL (0.55-4.78) Urine Color Yellow (Yellow) Urine Clarity Hazy (Clear) Urine pH 5.5 (5.0-9.0) Urine Specific [place] 1.013 (1.001-1.035) Urine Protein 1+ (Negative) Urine Ketones Negative (Negative) Urine Blood Negative /uL (Negative) Urine Nitrite Negative (Negative) Urine Bilirubin Negative (Negative) Urine Urobilinogen Normal mg/dL (Negative) Urine Leukocyte Esterase Negative /uL (Negative) Urine RBC 3 /hpf (0 - 3) Urine Microscopic WBC 7 /HPF (0-3) Urine Squamous Epithelial Cells Few /hpf (<5) Urine Bacteria Few /hpf (None Seen) Urine Creatinine 112.81 mg/dL (30.0-125.0) Urine Sodium 23 mmol/L (40-220) Urine Glucose Normal mg/dL (Normal) Urine Total Protein 71.7 mg/dL (1-14) Magnesium Level 2.3 mg/dL (1.6-2.6) Test 07/27/24 23:10 Triglycerides Level 183 mg/dL (< 150) Cholesterol Level 100 mg/dL (< 200) LDL Cholesterol 52 mg/dL (< 100) HDL Cholesterol 9 mg/dL (40-59) Other Laboratory Tests 07/31/24 03:23 Brief Hx & Hospital Course: HPI : 64-year-old male presents in ED via EMS with a chief complaint of chest pain. Patient PMHX includes hypertension, hyperlipidemia, diabetes, and possible noncompliance. The patient reports chest pressure pain nonradiating, non provoked for the past 15 days. In the emergency department, the patient underwent a 12 lead ECG showing normal sinus rhythm with prolonged OR interval and right BBB, serial troponin up trending with a recent results in . The patient states that he is under a Cardiology from [place] and supposed to have a follow-up office visit this coming August 06, 2024. The patient is alert and oriented but somehow poor historian, the son was contacted to verify cardiac history who states that the patient was supposed to take blood thinners but for some reason had stopped. SUMMARY: patient typical chest pain with history of CAD sp stents and further risk factors of tobacco, DM, HTN, noncompliance. Tn severely elevated into . started NG SL and asa, full dose heparin, ACS protocol. patient then continues chest pain requiring nitroglycerin gtt. Echo showing AI, possible Aortic vegetation. taken to computer lab assistant for LHC on 07/30, again showing severe AR with elevated LVEDP >40 mmHg. cardiology concern for AI and recommends transfer to [facility] for eval for AV replacement. during hospitalization patient noted to have rachel on ckd. also after vegetaions noted, the blood cultures taken growing GPC in chains, no speciation/sensitivity at time. vanc/ctx is started, pending repeat blood cultures. patient has low BP, questionable cirrhosis with low platelets and mild increased INR, midodrine 5mg tid is started. DIAGNOSIS Severe AR, severely elevated LVEDP AVR evaluation candidate Aortic vegetation possible NSTEMI , ruled out type 1, type 2 from AR Status post angiogram, patent stents per [facility] 07/30 Ruled out ACS structural heart disease is concerning as above. 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 continue current regimen - accepting facility needs CD with recordings of echocardiogram and angiogram -holding off plavix -continue aspirin -continue heparin gtt -continue midodrine 5mg tid -2nd blood cultures pending. initial with GPC in chains x2. continue vanc/ceftriaxone - lasix iv 20 daily, metoprolol XL 50 daily Condition at Discharge: Higher Level of Care Final Diagnosis/Problems List Severe AR, severely elevated LVEDP AVR evaluation candidate Aortic vegetation possible NSTEMI , ruled out type 1, type 2 from AR Status post angiogram, patent stents per [facility] 07/30 Ruled out ACS structural heart disease is concerning as above. 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 Patient was counseled about treatment plan, medications, possible side effects, patientverbalized understanding. All questions were answered to the best of my ability. This discharge took greater then 30 minutes in planning, reviewing documentation, counseling the patient, and discussing with other team members." Date of Service: Jul 31, 2024 Billing Provider: STEVE MELÉNDEZ MD Common Visit Codes: [id number] DISCH DAY >30min STEVE MELÉNDEZ MD Jul 31, 2024 15:17
--- NOTE | 2024-07-31 15:59 | ECG ---
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
[2024-07-31 17:45] LABS: INR 1.19 (0.9-1.15); Partial Thromboplastin Time 55.2 SEC (24.5-34.5); Prothrombin Time 12.4 sec (9.3-11.8)
--- NOTE | 2024-07-31 22:53 | DVHPN2 ---
Progress Note - Dictate Date Seen: Jul 31, 2024 Medical Necessity Reason Pt with a Central, PICC or Fol: No Subjective Patient was seen and evaluated in follow up. The patient has been downgrade to tele bed. Patient is receiving heparin drip. Chest x-ray shows a small left pleural effusion. BUN 34, Doughnut Batter Mixer 1.70. Telemetry reviewed. vital signs Vital Sign Date Time Temp Pulse Resp B/P (MAP) Pulse Ox O2 Delivery O2 Flow Rate FiO2 07/31/24 21:00 98.4 73 18 104/36 (58) 98 98.4 07/31/24 20:20 Nasal Cannula* 3 32 Total Intake and Output 07/30/24 07/30/24 07/31/24 15:00 23:00 07:00 Intake Total 630.5 ml 467 ml 608 ml Output Total 800 ml 1850 ml Balance 630.5 ml -333 ml -1242 ml medications Current Medications Medications Dose Ordered Sig/Joe Route Start Time Stop Time Status Last Admin Dose Admin Ondansetron HCl 4 mg Q4HP PRN IV 07/27/24 23:15 07/28/24 00:09 4 MG Nitroglycerin 0.4 mg Q5MINP PRN SL 07/27/24 23:15 07/29/24 10:19 0.4 MG Morphine Sulfate 2 mg Q30M PRN IV 07/27/24 23:15 07/30/24 08:31 2 MG Aspirin 81 mg DAILY PO 07/29/24 10:00 07/31/24 09:58 81 MG Atorvastatin Calcium 40 mg HS PO 07/28/24 22:00 07/31/24 20:06 40 MG Furosemide 20 mg DAILY IV 07/29/24 10:00 07/31/24 09:57 20 MG Metoprolol Succinate 50 mg DAILY PO 07/29/24 10:00 07/31/24 09:58 50 MG Nitroglycerin 250 ml @ 1.5 mls/hr Q24H IV 07/29/24 11:15 07/30/24 07:30 22.5 MLS/HR Daptomycin 650 mg/ Sodium Chloride 50 ml @ 100 mls/hr DAILY IV 07/31/24 10:00 07/31/24 12:43 100 MLS/HR Ceftriaxone Sodium/Dextrose 50 ml @ 50 mls/hr Q12HR@09,21 IV 07/30/24 21:00 07/31/24 20:06 50 MLS/HR Heparin Sodium/ Dextrose 250 ml @ 8 mls/hr Q24H IV 07/31/24 05:30 07/31/24 05:51 8 MLS/HR objective GENERAL: Alert and oriented x 3. No acute distress. EYES: PERRL, EOMI. Anicteric. HENT: Moist mucous membranes. LUNGS: Clear to auscultation bilaterally. CARDIOVASCULAR: Regular rate and rhythm. ABDOMEN: Soft, non-tender and non-distended. EXTREMITIES: No edema. NEUROLOGIC: No focal neurological deficits. SKIN: Warm, dry. laboratory and microbiology Laboratory Tests 07/31/24 03:23 Test 07/31/24 03:23 Range/Units Serum Glucose 87 74-106 mg/dL Problem List NSTEMI. RACHEL on possible CKD 4. Hypertension. Dyslipidemia. Diabetes type 2. Assessment/Plan Continued all current supportive medical care. Aspirin, Lipitor, Metoprolol. IV antibiotics as ordered. Diuretics with Lasix. Heparin drip per pharmacy. Additional plan as per the hospital course. Dietary Evaluation Review Comments: 1.To avoid uremic synptoms, recommend a Renal specific diet with 60g protein restriction. 2. Reassess protein needs after a updated nephrology consult. Expected Outcomes/Goals: maintain wt, minimised nephrotic syndroms Plan discussed with: Patient PETRONA WONG MD Jul 31, 2024 21:23
--- NOTE | 2024-07-31 23:30 | DVHPN2 ---
Progress Note - Dictate Date Seen: Jul 31, 2024 Medical Necessity Reason Pt with a Central, PICC or Fol: No Subjective Patient seen and examined at bedside. Remains on supplemental oxygen Overnight events reviewed. vital signs Vital Sign Date Time Temp Pulse Resp B/P (MAP) Pulse Ox O2 Delivery O2 Flow Rate FiO2 07/31/24 21:00 98.4 73 18 104/36 (58) 98 98.4 07/31/24 20:20 Nasal Cannula* 3 32 Total Intake and Output 07/30/24 07/30/24 07/31/24 15:00 23:00 07:00 Intake Total 630.5 ml 467 ml 608 ml Output Total 800 ml 1850 ml Balance 630.5 ml -333 ml -1242 ml medications Current Medications Medications Dose Ordered Sig/Joe Route Start Time Stop Time Status Last Admin Dose Admin Ondansetron HCl 4 mg Q4HP PRN IV 07/27/24 23:15 07/28/24 00:09 4 MG Nitroglycerin 0.4 mg Q5MINP PRN SL 07/27/24 23:15 07/29/24 10:19 0.4 MG Morphine Sulfate 2 mg Q30M PRN IV 07/27/24 23:15 07/30/24 08:31 2 MG Aspirin 81 mg DAILY PO 07/29/24 10:00 07/31/24 09:58 81 MG Atorvastatin Calcium 40 mg HS PO 07/28/24 22:00 07/31/24 20:06 40 MG Furosemide 20 mg DAILY IV 07/29/24 10:00 07/31/24 09:57 20 MG Metoprolol Succinate 50 mg DAILY PO 07/29/24 10:00 07/31/24 09:58 50 MG Nitroglycerin 250 ml @ 1.5 mls/hr Q24H IV 07/29/24 11:15 07/30/24 07:30 22.5 MLS/HR Daptomycin 650 mg/ Sodium Chloride 50 ml @ 100 mls/hr DAILY IV 07/31/24 10:00 07/31/24 12:43 100 MLS/HR Ceftriaxone Sodium/Dextrose 50 ml @ 50 mls/hr Q12HR@, IV 07/30/24 21:00 07/31/24 20:06 50 MLS/HR Heparin Sodium/ Dextrose 250 ml @ 8 mls/hr Q24H IV 07/31/24 05:30 07/31/24 05:51 8 MLS/HR objective Gen.: Patient lying in bed in no apparent distress. On supplemental oxygen. Head: Normocephalic, atraumatic. Eyes: EOMI/PERRLA. Ears: Normal hearing. Normal anatomy. Neck/trachea: Trachea midline, supple. Nose: Normal external anatomy. Mouth: Moist mucous membranes. Chest: Decreased air entry bilaterally. No wheezing or rhonchi. Cardiovascular: Positive S1, positive S2. Regular rate and rhythm. Abdomen: Positive bowel sounds in all 4 quadrants. Soft, non-tender, non- distended. : Deferred. Rectal: Deferred. Skin: Warm, dry. Intact. Extremities: 2+ radial pulses bilaterally. No lower extremity edema. Neuro: Awake, alert, oriented x3. No gross motor or sensory deficits. Cranial nerves II through XII intact. Gait not assessed. laboratory and microbiology Laboratory Tests 07/31/24 03:23 Test 07/31/24 03:23 Range/Units Serum Glucose 87 74-106 mg/dL Assessment/Plan Impression: Acute hypoxic respiratory failure Dependence on supplemental oxygen Chest pain, rule out ACS NSTEMI, ruled out type 1, type 2 from AR Acute exacerbation of CHF CAD s/p angiogram, patent stents RACHEL on possible CKD 4 Diabetes type 2 Events: Remains on supplemental oxygen, 3 LPM NC Taper O2 as tolerated Continue antibiotics Incentive spirometry Aspirin On heparin drip Diurese with Lasix as tolerated Monitor renal function. Monitor electrolytes. Supplement as necessary. Patient is stable for downgrade from the pulmonary standpoint. Labs and imaging reviewed. Rest of plan as noted below. Plan: Supplemental oxygen Titrate to keep O2 sats above 92%. Heparin drip Status post left heart catheterization, findings of pericarditis Plan for HLOC for aortic valve replacement + endocarditis Cardiology recommendations appreciated Continue antibiotics Positive blood cultures ID recommendations appreciated Diurese with Lasix as tolerated Monitor renal function. Monitor electrolytes. Supplement as necessary. Monitor ins and outs. DVT prophylaxis. Prognosis: Poor given patient's multiple co-morbidities. Rest of plan per hospitalist and other consultants. Thank you, Dr. Robert, for allowing me to participate in this patient's care. Further recommendations will depend on the patient's clinical course. Please do not hesitate to contact me if you have any questions or concerns. This medical document was created using an electronic medical record system with [employer] dictation system. Although these documentations are being carefully reviewed, there may still be some phonetic and typographical changes. The errors are purely typographical, due to imperfection on the software program, and do not reflect any compromise in the patient's medical care. Dietary Evaluation Review Comments: 1.To avoid uremic synptoms, recommend a Renal specific diet with 60g protein restriction. 2. Reassess protein needs after a updated nephrology consult. Expected Outcomes/Goals: maintain wt, minimised nephrotic syndroms Plan discussed with: Patient, Other (MAHIN Mariano) YOCASTA WONG MD Jul 31, 2024 23:30
--- NOTE | 2024-08-01 22:10 | DVHPN2 ---
Consult Progress Note Date Seen: Jul 31, 2024 Subjective Patient reports: Other (starting to produce clear urine about 2.6 liters overnight , consistent with post ATN diuresis . otherwise is doing well , remains on heparine drip , no muscle aches ) Objective vital signs Vital Sign Date Time Temp Pulse Resp B/P (MAP) Pulse Ox O2 Delivery O2 Flow Rate FiO2 07/31/24 21:00 98.4 73 18 104/36 (58) 98 98.4 07/31/24 20:20 Nasal Cannula* 3 32 Total Intake and Output 07/31/24 07/31/24 08/01/24 15:00 23:00 07:00 Intake Total 156 ml 50 ml Output Total 150 ml Balance 156 ml -100 ml medications Physical Exam: General: NAD Neck: Supple. No masses. HEENT: PERRL. Normal lids and conjunctiva. Moist mucous membranes. Oropharynx without lesions, exudates or excessive erythema. Normal appearance of the external aspects of the nose and ears. Heart: Regular rhythm, normal rate. No murmur. No lower extremity edema. Lungs: Normal respiratory effort. Clear to auscultation bilaterally. No wheezes. No crackles. Abdomen: Soft. Non-tender. Non-distended. No masses or abdominal hernia. Msk: No digital cyanosis. Normal strength and tone in all 4 limbs. Skin: Warm and dry, no rashes. No open wounds. Neuro: Alert. No facial droop or slurred speech. Extra-ocular movements intact. Sensation intact to soft touch in all 4 limbs. Psych: Appropriate mood. Full affect. Oriented to person, place, time, and situation. laboratory and microbiology Laboratory Tests 07/31/24 03:23 Test 07/31/24 03:23 Range/Units Serum Glucose 87 74-106 mg/dL Problem List/Assessment/Plan Problems(with codes): (1) Acute exacerbation of chronic heart failure (2) Prolonged QT interval (3) Murmur (4) Bacteremia (5) NSTEMI (non-ST elevated myocardial infarction) (6) Acute chest pain Problem List/Assessment/Plan ASSESSMENT AND PLAN: ID Problem List: - Chest pain with elevated troponin (up to 4000) - Hypertension - Diabetes mellitus - Dyslipidemia - Acute kidney injury (creatinine up to 2.71) - Thrombocytopenia (platelet count 65) - Bacteremia (Gram positive cocci in chains in blood cultures) - Possible endocarditis - Heart failure/volume overload (BNP up to 1197, moderate RV and LV dilation) - Calcified aortic valve - History of percutaneous coronary intervention - Chronic atelectasis (right lung base) Assessment: This is a 64-year-old male with a history of diabetes mellitus, dyslipidemia, hypertension, and prior percutaneous coronary intervention, admitted with intermittent, substernal chest pain (pressure, 6/10 severity). On arrival, the patient was in mild distress with ongoing chest pain. Initial evaluation demonstrated elevated troponins (up to 4000), BNP as high as 1197, and RACHEL (creatinine peaked at 2.71). Platelet count was 65. Blood cultures grew Gram positive cocci in chains in 2 out of 4 bottles on different sets. EKG revealed repolarization abnormalities (ischemia in diffuse leads), prolonged MD interval, baseline wander in V3, and borderline ST depression in lateral leads. TTE showed slightly dilated left ventricle, moderately dilated right ventricle, moderately calcified aortic leaflets (aortic valve area 2.9 cm), and increased peak gradient across the aortic valve. CXR shows chronic atelectasis of the right base. Renal ultrasound was normal. Due to rising troponins and persistent symptoms, the patient was transferred to the ICU for close monitoring and started on heparin and nitroglycerin drips. Cardiology consultation recommended left heart catheterization once renal function improves. Infectious evaluation is ongoing due to bacteremia and possible endocarditis (suggested by bacteremia, calcified valve, abnormal EKG, and MD interval changes). 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 distal RCA 70% stenosis , mid LAD has a sequentail 50% stenosis with diffuse distal disease of 50-60% . elevated LVEDP of 49 mg of mercury int eh setting ther is ongoing concern of probable acute aortic insufficiency and possible vegetation 07/31: patient is to be transferred to [facility] for additional care of possible endocarditis Plan: - continue antibiotics until patients culture data returns - will notify the transferring hospital of the species of the positive blood cultures as well as if they remain persistently positive on repeat culturing - defer additional management of endocarditis to transferring hospital team - Continue heparin and nitroglycerin drips per ICU/cardiology protocols - start daptomycin, continue Ceftriaxone - Discontinue doxycycline (not indicated) - Repeat blood cultures in 24 hours - CHRISTOPHER planned for evaluation of possible endocarditis - Monitor for hypoxia/worsening respiratory status; consider chest CT if suspicion for septic emboli arises - Follow up on blood culture sensitivities and speciation (Gram positive cocci, chains) - Infectious disease and cardiology to follow - Continue supportive care; manage blood pressure, blood glucose, and volume status per standard protocols - Dose daptomycin every other day, initiate at 8 mg/kg, adjust per renal function and lab values Assessment and plan was discussed with the patient as written above. Authorized and Performed by: Dariel Nuñez Total critical care time: Approximately 76 minutes Due to a high probability of clinically significant, life threatening deterioration, the patient required my highest level of preparedness to intervene emergently and I personally spent this critical care time directly and personally managing the patient. This critical care time included obtaining a history; examining the patient; pulse oximetry; ordering and review of studies; arranging urgent treatment with development of a management plan; evaluation of patient's response to treatment; frequent reassessment; and, discussions with other providers. This critical care time was performed to assess and manage the high probability of imminent, life-threatening deterioration that could result in multi-organ failure. It was exclusive of separately billable procedures and treating other patients and teaching time. Plan discussed with: Other Dietary Evaluation Review Comments: 1.To avoid uremic synptoms, recommend a Renal specific diet with 60g protein restriction. 2. Reassess protein needs after a updated nephrology consult. Expected Outcomes/Goals: maintain wt, minimised nephrotic syndroms DARIEL NUÑEZ MD Aug 01, 2024 22:10
== END 2024-07-31 22:55 | disposition short-term general hospital (02) | DRG 192 ==
LOC: EDBD 20:13 → ER 20:13 → OVERFLOW 23:07 → TELE-WESTW 07-28 02:40 → ICU WEST 07-29 14:55 → TELE-EAST 07-31 14:55
PROVIDERS: ADMIT Student in an Organized Health Care Education/Training Program; ATTEND Student in an Organized Health Care Education/Training Program
PROC: B211YZZ Fluoroscopy of Multiple Coronary Arteries using Other Contrast (ICD-10-PCS; principal; 2024-07-30)
PROC: 4A023N7 Measurement of Cardiac Sampling and Pressure, Left Heart, Percutaneous Approach (ICD-10-PCS; 2024-07-30)
DX: I35.1 Nonrheumatic aortic (valve) insufficiency (principal); N17.0 Acute kidney failure with tubular necrosis; J96.01 Acute respiratory failure with hypoxia; I50.33 Acute on chronic diastolic (congestive) heart failure; I21.A1 Myocardial infarction type 2; D69.6 Thrombocytopenia, unspecified; E87.1 Hypo-osmolality and hyponatremia; N18.4 Chronic kidney disease, stage 4 (severe); I33.0 Acute and subacute infective endocarditis; I13.0 Hypertensive heart and chronic kidney disease with heart failure and stage 1 through stage 4 chronic kidney disease, or unspecified chronic kidney disease; E11.22 Type 2 diabetes mellitus with diabetic chronic kidney disease; F03.90 Unspecified dementia, unspecified severity, without behavioral disturbance, psychotic disturbance, mood disturbance, and anxiety; K74.60 Unspecified cirrhosis of liver; E78.5 Hyperlipidemia, unspecified; I25.2 Old myocardial infarction; I25.10 Atherosclerotic heart disease of native coronary artery without angina pectoris; I48.91 Unspecified atrial fibrillation; I45.10 Unspecified right bundle-branch block; I44.0 Atrioventricular block, first degree; J98.11 Atelectasis; Z99.81 Dependence on supplemental oxygen; Z91.148 Patient's other noncompliance with medication regimen for other reason; Z79.82 Long term (current) use of aspirin; Z98.61 Coronary angioplasty status
CPT/HCPCS: 36415; 71045; 76775; 80048; 80053; 80061; 81001; 82306; 82570; 83735; 83880; 83935; 84100; 84156; 84300; 84443; 84484; 84550; 85025; 85610; 85730; 87040; 87077; 87186; 93005; 93306; 93458; 96361; 96374; 99152; 99291; G0378; J2250; J2405; Q9967